=== PATIENT | female | born 1955 | race Caucasian/White ===

== ENCOUNTER 2017-09-25 16:54 | Inpatient (IN) | payer MEDICARE ==
[~2017-09-25] VITALS: Ht 154.9 cm; Wt 166.4 kg
[~2017-09-25 16:54] MED LIST: ACET1TAB25 PO; BACL10TA PO; CYAN250014 PO; FERR325T22 PO; FLUT100P6 MC; LEVO125T11 PO; LEVO150T11 PO; OMEG1CAP6 PO; OMEP40CA37 PO; SULF1TAB42 PO; TRAM50TA4 PO
[2017-09-25 17:19] LABS: BASOPHILS % (AUTO) 0.3 % (0.0-5.0); HEMATOCRIT 44.2 % (36-48); LYMPHOCYTES % (AUTO) 19.6 % (21.0-51.0); MEAN CORPUSCULAR HEMOGLOBIN 30.6 pg (27.0-33.0); MEAN CORPUSCULAR HGB CONC 33.2 g/dL (32.0-36.0); MEAN CORPUSCULAR VOLUME 92.2 fL (79-99); MONOCYTES % (AUTO) 14.6 % (3.0-13.0); NEUTROPHILS % (AUTO) 64.5 % (40.0-77.0); NUCLEATED RED BLOOD CELLS 0.1 % (0.0-0.19); PLATELET COUNT (AUTO) 216 K/uL (130-400); RED BLOOD CELL COUNT(AUTO) 4.79 MIL/uL (4.00-5.50); RED CELL DISTRIBUTION WIDTH 13.9 % (11.0-15.5); WHITE BLOOD COUNT (AUTO) 7.2 K/uL (4.8-10.8)
[2017-09-25 17:29] LABS: PARTIAL THROMBOPLASTIN TIME 30.6 SEC (26.3-35.5); PROTHROMBIN TIME 10.5 SEC (9.6-11.6)
[2017-09-25 17:32] LABS: CARBON DIOXIDE 26 mmol/L (21-32); CHLORIDE 101 mmol/L (101-111); CREATININE 0.7 mg/dL (0.5-1.5); GLOMERULAR FILTR. RATE CALC 90 mL/min (>60); GLUCOSE,RANDOM 117 mg/dL (70-105); POTASSIUM 3.6 mmol/L (3.5-5.1); SODIUM SERUM 136 mmol/L (136-145); UREA NITROGEN, BLOOD 18 mg/dL (7-18)
[2017-09-25 17:44] LABS: ALANINE AMINOTRANSFERASE 31 U/L (12-78); ALBUMIN 3.1 g/dL (3.5-5.0); AMYLASE 16 U/L (25-115); ASPARTATE AMINOTRANSFERASE 35 U/L (10-37); BILIRUBIN,TOTAL 0.8 mg/dL (0.2-1.0); CREATINE KINASE MB < 0.5 ng/mL (0.5-3.6); CREATINE KINASE, TOTAL 61 U/L (21-232); LIPASE 104 U/L (114-286); TOTAL PROTEIN, SERUM 6.8 g/dL (6.0-8.3)
[2017-09-25 18:25] LABS: B-TYPE NATRIURETIC PEPTIDE 23 pg/mL (0-100)
[2017-09-25] MEDS ORDERED: TRAMADOL HCL 50 MG TABLET ONE ×2 (18:25→23:06)
[2017-09-25 18:50] LABS: ERYTHROCYTE SEDIMENTATION RATE 27 MM/HR (0-15)
[2017-09-25 18:50] LABS: APPEARANCE,URINE Cloudy (CLEAR); BILIRUBIN,URINE Negative (NEGATIVE); COLOR,URINE Yellow (YELLOW); GLUCOSE, URINE (UA) Negative (NEGATIVE); KETONES,URINE Negative (NEGATIVE); LEUKOCYTE ESTERASE ,URINE Large (NEGATIVE); NITRATE,URINE Negative (NEGATIVE); OCCULT BLOOD,URINE Trace (NEGATIVE); PH,URINE 5.5 (5.0-8.0); PROTEIN,URINE Negative (NEGATIVE)
[2017-09-25 18:55] LABS: BACTERIA,URINE Many /HPF (None Seen); RBC,URINE None Seen /HPF (0-1); WBC,URINE 26-50 /HPF (0-1)
[2017-09-25] MEDS ORDERED: CLINDAMYCIN 600 MG/D5% WATER 50 ML IV ONE (19:52)
[2017-09-25] MEDS ORDERED: ZOSYN 3.375GM+NS 50ML 50 ML IV ONE (19:52)
[2017-09-25] MEDS ORDERED: VANCOMYCIN 1GM+NS 250ML 250 ML IV ONE (21:36)
[2017-09-26] MEDS ORDERED: VANCOMYCIN PROTOCOL PER PHARMACY IV SCH (01:30)
[2017-09-26] MEDS ORDERED: ACETAMINOPHEN 325 MG TAB PO PRN (01:30)
[2017-09-26] MEDS: SODIUM CHLORIDE 0.9% 1000ML 1,000 ML IV SCH ×2 (01:45→15:05)
[2017-09-26 02:00] VITALS: BP 98/63
[2017-09-26] MEDS ORDERED: CITA10TA7 PO (02:43)
[2017-09-26] MEDS ORDERED: ASPI-988 PO (02:43)
[2017-09-26] MEDS ORDERED: CHOL50004 PO (02:43)
[2017-09-26] MEDS ORDERED: FLUT5POW4 MC (02:43)
[2017-09-26] MEDS ORDERED: LOVA10TA2 PO (02:43)
[2017-09-26] MEDS ORDERED: [UNRECOGNIZED DRUG - CODE] TP (02:43)
[2017-09-26] MEDS ORDERED: FLUT5POW4 NS (02:43)
[2017-09-26] MEDS ORDERED: COMPOUND IV REFRIGERATED 1 EACH IVSOLN MISC PRN (04:00)
[2017-09-26] MEDS: ZOSYN 3.375GM+NS 50ML 50 ML IV SCH ×3 (04:21→22:37)
[2017-09-26 04:33] VITALS: BP 89/58
[2017-09-26 05:32] LABS: CREATININE 0.8 mg/dL (0.5-1.5)
[2017-09-26 05:35] LABS: POTASSIUM 2.9 mmol/L (3.5-5.1)
[2017-09-26 05:36] LABS: HEMATOCRIT 41.3 % (36-48); MEAN CORPUSCULAR HEMOGLOBIN 31.2 pg (27.0-33.0); MEAN CORPUSCULAR HGB CONC 33.1 g/dL (32.0-36.0); MEAN CORPUSCULAR VOLUME 94.1 fL (79-99); PLATELET COUNT (AUTO) 213 K/uL (130-400); RED BLOOD CELL COUNT(AUTO) 4.39 MIL/uL (4.00-5.50); RED CELL DISTRIBUTION WIDTH 14.1 % (11.0-15.5); WHITE BLOOD COUNT (AUTO) 8.4 K/uL (4.8-10.8)
[2017-09-26] MEDS ORDERED: PHARMACY COMMUNICATION MISC SCH ×2 (06:45→07:45)
[2017-09-26] MEDS ORDERED: POTASSIUM CHLORIDE 10 MEQ/TAB.SR PO PRN (07:00)
[2017-09-26] MEDS ORDERED: LIDOCAINE HCL-MPF 1% 2ML VIAL IV PRN (07:00)
[2017-09-26] MEDS ORDERED: POTASSIUM CHLORIDE 10MEQ/100ML 100 ML IV PRN (07:00)
[2017-09-26] MEDS: POTASSIUM CHLORIDE 10% ELIXIR 20 MEQ/15 ML UDCUP PO PRN ×2 (07:59→19:39)
[2017-09-26 08:00] VITALS: BP 111/64
[2017-09-26] MEDS: VANCOMYCIN 1.25 GM in SODIUM CHLORIDE 0.9% 250 ML IV SCH ×3 (08:00→22:48)
[2017-09-26] MEDS ORDERED: TRAMADOL HCL 50 MG TABLET PO PRN (10:15)
[2017-09-26] MEDS: PANTOPRAZOLE SODIUM 40 MG TABLET.DR PO SCH (10:52)
[2017-09-26] MEDS: ENOXAPARIN SODIUM 40 MG/0.4 ML SYRINGE SQ SCH (10:53)
[2017-09-26 12:00] VITALS: BP 117/55
[2017-09-26] MEDS: POTASSIUM CHLORIDE 10 MEQ in SODIUM CHLORIDE 0.9% 1000ML 1,000 ML IV SCH ×2 (12:05→21:09)
[2017-09-26] MEDS: TRAMADOL HCL 50 MG TABLET PO PRN ×2 (12:44→22:47)
[2017-09-26 16:00] VITALS: BP 113/57
[2017-09-26 19:00] VITALS: BP 110/70
[2017-09-27] VITALS (7 sets, daily range): BP systolic 105–127; BP diastolic 58–76
[2017-09-27] MEDS: ZOSYN 3.375GM+NS 50ML 50 ML IV SCH ×3 (03:57→22:08)
[2017-09-27] MEDS: SODIUM CHLORIDE 0.9% 1000ML 1,000 ML IV SCH ×2 (03:58→15:29)
[2017-09-27 05:50] LABS: CREATININE 0.7 mg/dL (0.5-1.5); POTASSIUM 3.8 mmol/L (3.5-5.1)
[2017-09-27 06:05] LABS: HEMATOCRIT 40.2 % (36-48); MEAN CORPUSCULAR HEMOGLOBIN 30.9 pg (27.0-33.0); MEAN CORPUSCULAR HGB CONC 33.1 g/dL (32.0-36.0); MEAN CORPUSCULAR VOLUME 93.3 fL (79-99); PLATELET COUNT (AUTO) 209 K/uL (130-400); RED BLOOD CELL COUNT(AUTO) 4.31 MIL/uL (4.00-5.50); RED CELL DISTRIBUTION WIDTH 13.9 % (11.0-15.5); WHITE BLOOD COUNT (AUTO) 5.4 K/uL (4.8-10.8)
[2017-09-27] MEDS: VANCOMYCIN 1.25 GM in SODIUM CHLORIDE 0.9% 250 ML IV SCH ×2 (06:30→14:58)
[2017-09-27] MEDS: ATORVASTATIN CALCIUM 10 MG TABLET PO SCH (08:17)
[2017-09-27] MEDS: CITALOPRAM 20 MG TABLET PO SCH (08:17)
[2017-09-27] MEDS: CYANOCOBALAMIN (VITAMIN B-12) 1,000 MCG TABLET PO SCH (08:17)
[2017-09-27] MEDS: LEVOTHYROXINE 125 MCG TABLET PO SCH (08:17)
[2017-09-27] MEDS: FISH OIL 1000 MG/CAP PO SCH (08:18)
[2017-09-27] MEDS: ENOXAPARIN SODIUM 40 MG/0.4 ML SYRINGE SQ SCH (08:19)
[2017-09-27] MEDS: PANTOPRAZOLE SODIUM 40 MG TABLET.DR PO SCH (08:19)
[2017-09-27] MEDS: **HM** VIT D3 5000 UNITS PO SCH (08:20)
[2017-09-27 08:44] LABS: EOSINOPHILS % (MANUAL) 4 % (1-6); LYMPHOCYTES % (MANUAL) 17 % (22-44); MONOCYTES % (MANUAL) 11 % (2-9); PLATELET MORPHOLOGY COMMENT ADEQUATE; SEGMENTED NEUTROPHILS % 68 % (40-70)
[2017-09-27 08:45] LABS: MAN.DIFF COMMENT-IMPRESSION MANUAL DIFFERENTIAL
[2017-09-27] MEDS ORDERED: FLUTICASONE PROP MISC PRN (09:00)
[2017-09-27] MEDS ORDERED: [UNRECOGNIZED DRUG - OTHER] TP PRN (09:00)
[2017-09-27] MEDS ORDERED: EXCEDRINE MIGRAINE PO PRN (09:00)
[2017-09-27] MEDS: POTASSIUM CHLORIDE 10 MEQ in SODIUM CHLORIDE 0.9% 1000ML 1,000 ML IV SCH ×2 (13:24→22:44)
[2017-09-27] MEDS ORDERED: SODIUM CHLORIDE 0.9% 250 ML IV ONE (15:04)
[2017-09-27] MEDS: TRAMADOL HCL 50 MG TABLET PO PRN (17:43)
[2017-09-28] MEDS: TRAMADOL HCL 50 MG TABLET PO PRN ×4 (00:12→23:26)
[2017-09-28 03:35] VITALS: BP 110/71
[2017-09-28] MEDS: ZOSYN 3.375GM+NS 50ML 50 ML IV SCH ×3 (04:11→21:09)
[2017-09-28] MEDS: SODIUM CHLORIDE 0.9% 1000ML 1,000 ML IV SCH ×2 (04:11→20:25)
[2017-09-28 08:05] VITALS: BP 121/73
[2017-09-28] MEDS: **HM** VIT D3 5000 UNITS PO SCH (09:00)
[2017-09-28] MEDS ORDERED: LEVOTHYROXINE 150 MCG TABLET PO SCH (09:00)
[2017-09-28] MEDS: LEVOTHYROXINE 125 MCG TABLET PO SCH ×2 (09:00→09:05)
[2017-09-28] MEDS ORDERED: VANCOMYCIN 1.5 GM in SODIUM CHLORIDE 0.9% 250 ML IV SCH (09:00)
[2017-09-28] MEDS: ENOXAPARIN SODIUM 40 MG/0.4 ML SYRINGE SQ SCH (09:03)
[2017-09-28] MEDS: ATORVASTATIN CALCIUM 10 MG TABLET PO SCH (09:04)
[2017-09-28] MEDS: FISH OIL 1000 MG/CAP PO SCH (09:04)
[2017-09-28] MEDS: PANTOPRAZOLE SODIUM 40 MG TABLET.DR PO SCH (09:04)
[2017-09-28] MEDS: CITALOPRAM 20 MG TABLET PO SCH (09:04)
[2017-09-28] MEDS: CYANOCOBALAMIN (VITAMIN B-12) 1,000 MCG TABLET PO SCH (09:04)
[2017-09-28] MEDS: WATER IV SCH ×2 (09:16→21:09)
[2017-09-28] MEDS: DEXTROSE 5% IV SCH ×2 (09:16→21:09)
[2017-09-28] MEDS: VANCOMYCIN IV SCH ×2 (09:16→21:09)
[2017-09-28 11:34] VITALS: BP 128/71
[2017-09-28 16:47] VITALS: BP 129/75
[2017-09-28] MEDS ORDERED: BENZOCAINE/MENTH/CETYLPYRD CL 1 EACH LOZENGE MM PRN (18:00)
[2017-09-28 20:21] VITALS: BP 117/72
[2017-09-28] MEDS: POTASSIUM CHLORIDE 10 MEQ in SODIUM CHLORIDE 0.9% 1000ML 1,000 ML IV SCH (21:08)
[2017-09-29 00:06] VITALS: BP 143/72
[2017-09-29] MEDS: POTASSIUM CHLORIDE 10 MEQ in SODIUM CHLORIDE 0.9% 1000ML 1,000 ML IV SCH (02:33)
[2017-09-29 04:05] VITALS: BP 120/67
[2017-09-29] MEDS: ZOSYN 3.375GM+NS 50ML 50 ML IV SCH ×2 (04:13→12:00)
[2017-09-29] MEDS: TRAMADOL HCL 50 MG TABLET PO PRN (06:41)
[2017-09-29 07:35] VITALS: BP 132/61
[2017-09-29] MEDS ORDERED: ACETAMINOPHEN-CODEINE 300/30MG TAB PO SCH (08:15)
[2017-09-29] MEDS: DEXTROSE 5% IV SCH (08:49)
[2017-09-29] MEDS: VANCOMYCIN IV SCH (08:49)
[2017-09-29] MEDS: WATER IV SCH (08:49)
[2017-09-29] MEDS: ENOXAPARIN SODIUM 40 MG/0.4 ML SYRINGE SQ SCH (08:49)
[2017-09-29] MEDS: FISH OIL 1000 MG/CAP PO SCH (08:49)
[2017-09-29] MEDS: CYANOCOBALAMIN (VITAMIN B-12) 1,000 MCG TABLET PO SCH (08:50)
[2017-09-29] MEDS: ATORVASTATIN CALCIUM 10 MG TABLET PO SCH (08:50)
[2017-09-29] MEDS: LEVOTHYROXINE 125 MCG TABLET PO SCH (08:50)
[2017-09-29] MEDS: PANTOPRAZOLE SODIUM 40 MG TABLET.DR PO SCH (08:50)
[2017-09-29] MEDS: CITALOPRAM 20 MG TABLET PO SCH (08:52)
[2017-09-29] MEDS: **HM** VIT D3 5000 UNITS PO SCH (09:00)
[2017-09-29] MEDS: SODIUM CHLORIDE 0.9% 1000ML 1,000 ML IV SCH (10:19)
[2017-09-29 11:58] VITALS: BP 111/65
[2017-09-29] MEDS ORDERED: FLU VACC QS2017-18 36MOS UP/PF 60 MCG/0.5 ML ML IM SCH (13:45)
[2017-09-29] MEDS ORDERED: FLU VACC QS2017-18 36MOS UP/PF 60 MCG/0.5 ML ML IM ONE (13:52)
== END 2017-09-29 16:29 | disposition home or self-care (01) | DRG 603 ==
LOC: EDH 16:54 → EDHIP 18:59 → 4CH 23:53
PROVIDERS: ADMIT Internal Medicine Nephrology; ATTEND Internal Medicine Nephrology
PROC: 3E0234Z Introduction of Serum, Toxoid and Vaccine into Muscle, Percutaneous Approach (ICD-10-PCS; principal; 2017-09-26)
DX: L03.311 Cellulitis of abdominal wall (principal); E66.01 Morbid (severe) obesity due to excess calories; N39.0 Urinary tract infection, site not specified; E03.9 Hypothyroidism, unspecified; E11.9 Type 2 diabetes mellitus without complications; E87.6 Hypokalemia; K43.9 Ventral hernia without obstruction or gangrene; Z23 Encounter for immunization; E78.5 Hyperlipidemia, unspecified; F41.1 Generalized anxiety disorder; K21.9 Gastro-esophageal reflux disease without esophagitis; Z82.49 Family history of ischemic heart disease and other diseases of the circulatory system; Z83.3 Family history of diabetes mellitus; G89.29 Other chronic pain; M54.5 Low back pain; Z90.49 Acquired absence of other specified parts of digestive tract; Z88.0 Allergy status to penicillin; Z88.2 Allergy status to sulfonamides
CPT/HCPCS: 36415; 71010; 74176; 80048; 80053; 80202; 81001; 82150; 82550; 82553; 82948; 83605; 83690; 83880; 84132; 84484; 85025; 85027; 85610; 85651; 85730; 86141; 87040; 87088; 87186; 93005; G0008; J1650; J2543; J3370; J3480; J3490; J7030; J7060; Q2038

== ENCOUNTER 2017-10-18 07:23 | Inpatient (IN) | payer MEDICARE ==
[~2017-10-18] VITALS: Ht 154.9 cm; Wt 166.0 kg
[~2017-10-18 07:23] MED LIST changes: +ASPI-988 PO; -BACL10TA PO; +CHOL50004 PO; +CITA10TA7 PO; -FERR325T22 PO; -FLUT100P6 MC; +FLUT5POW4 MC; +FLUT5POW4 NS; +LOVA10TA2 PO; -SULF1TAB42 PO; +[UNRECOGNIZED DRUG - CODE] TP
[2017-10-18] MEDS ORDERED: SODIUM CHLORIDE 0.9% 1000ML 1,000 ML IV ONE ×2 (07:55→08:51)
[2017-10-18] MEDS ORDERED: VANCOMYCIN 1GM+NS 250ML 250 ML IV ONE (08:19)
[2017-10-18 08:25] LABS: BASOPHILS % (AUTO) 0.4 % (0.0-5.0); EOSINOPHILS % (AUTO) 1.9 % (0.0-8.0); LYMPHOCYTES % (AUTO) 16.3 % (21.0-51.0); MEAN CORPUSCULAR HEMOGLOBIN 31.3 pg (27.0-33.0); MEAN CORPUSCULAR HGB CONC 33.5 g/dL (32.0-36.0); MEAN CORPUSCULAR VOLUME 93.2 fL (79-99); MONOCYTES % (AUTO) 12.4 % (3.0-13.0); PLATELET COUNT (AUTO) 210 K/uL (130-400); RED BLOOD CELL COUNT(AUTO) 4.71 MIL/uL (4.00-5.50); RED CELL DISTRIBUTION WIDTH 14.2 % (11.0-15.5); WHITE BLOOD COUNT (AUTO) 8.3 K/uL (4.8-10.8)
[2017-10-18 08:40] LABS: POTASSIUM 3.9 mmol/L (3.5-5.1)
[2017-10-18 08:46] LABS: ALBUMIN 3.2 g/dL (3.5-5.0); BILIRUBIN,TOTAL 0.7 mg/dL (0.2-1.0); TOTAL PROTEIN, SERUM 7.1 g/dL (6.0-8.3)
[2017-10-18 09:36] LABS: CREATININE 0.8 mg/dL (0.5-1.5)
[2017-10-18] MEDS ORDERED: MEROPENEM 1 GM VIAL ONE (17:14)
[2017-10-18] MEDS ORDERED: TRAMADOL HCL 50 MG TABLET ONE (18:44)
[2017-10-18 21:15] VITALS: BP 110/62
[2017-10-18] MEDS ORDERED: DEXTROSE 50%-WATER 50 ML DISP.SYRIN IV PRN (21:45)
[2017-10-18] MEDS ORDERED: VANCOMYCIN PROTOCOL PER PHARMACY IV SCH (21:45)
[2017-10-18] MEDS ORDERED: GLUCAGON 1MG KIT 1 MG ML IM PRN (21:45)
[2017-10-18] MEDS ORDERED: SODIUM CHLORIDE 0.9% 1000ML 1,000 ML IV SCH (22:00)
[2017-10-19] VITALS (7 sets, daily range): BP systolic 99–122; BP diastolic 42–78
[2017-10-19] MEDS ORDERED: MEROPENEM 1 GM VIAL IVP SCH (04:30)
[2017-10-19] MEDS ORDERED: COMPOUND IV REFRIGERATED 1 EACH IVSOLN MISC PRN ×2 (04:30→07:15)
[2017-10-19] MEDS ORDERED: DIPHENOXYLATE HCL/ATROPINE 2.5/0.025 MG TAB PO PRN (04:45)
[2017-10-19] MEDS ORDERED: CYCLOBENZAPRINE HCL 10 MG TABLET PO PRN (04:45)
[2017-10-19] MEDS ORDERED: FLUTICASONE PROPIONATE 50MCG/SPRAY 16 GM BOTTLE NS SCH (04:45)
[2017-10-19] MEDS ORDERED: CYCL10TA7 PO (05:05)
[2017-10-19] MEDS ORDERED: LOVA10TA2 PO (05:05)
[2017-10-19] MEDS ORDERED: LEVO200T10 PO (05:05)
[2017-10-19] MEDS ORDERED: CHOL50004 PO (05:05)
[2017-10-19] MEDS ORDERED: CYAN1TAB44 PO (05:05)
[2017-10-19] MEDS ORDERED: DIPH1TAB24 PO (05:05)
[2017-10-19] MEDS ORDERED: OMEP40CA37 PO (05:05)
[2017-10-19] MEDS ORDERED: ASPI-797 PO (05:05)
[2017-10-19] MEDS ORDERED: TRI115C TP (05:05)
[2017-10-19] MEDS ORDERED: LEVO150T11 PO (05:05)
[2017-10-19] MEDS ORDERED: CITA10TA7 PO (05:05)
[2017-10-19] MEDS ORDERED: TRAM50TA4 PO (05:05)
[2017-10-19] MEDS ORDERED: CEPH500C2 PO (05:05)
[2017-10-19] MEDS ORDERED: FLUT16H NASAL (05:05)
[2017-10-19 05:41] LABS: HEMATOCRIT 39.1 % (36-48); MEAN CORPUSCULAR HEMOGLOBIN 31.7 pg (27.0-33.0); MEAN CORPUSCULAR HGB CONC 33.8 g/dL (32.0-36.0); MEAN CORPUSCULAR VOLUME 93.8 fL (79-99); PLATELET COUNT (AUTO) 190 K/uL (130-400); RED BLOOD CELL COUNT(AUTO) 4.17 MIL/uL (4.00-5.50); WHITE BLOOD COUNT (AUTO) 4.7 K/uL (4.8-10.8)
[2017-10-19 05:56] LABS: ALBUMIN 2.5 g/dL (3.5-5.0); BILIRUBIN,TOTAL 0.6 mg/dL (0.2-1.0); CREATININE 0.7 mg/dL (0.5-1.5); POTASSIUM 3.2 mmol/L (3.5-5.1)
[2017-10-19] MEDS ORDERED: VANCOMYCIN 1.5 GM in SODIUM CHLORIDE 0.9% 250 ML IV SCH ×2 (06:30→07:13)
[2017-10-19] MEDS: INSULIN R PO SS1 SQ SCH ×4 (06:38→19:38)
[2017-10-19] MEDS: MEROPENEM 1 GM VIAL IVP SCH ×3 (08:03→22:56)
[2017-10-19] MEDS ORDERED: LEVOTHYROXINE 150 MCG TABLET PO SCH (09:00)
[2017-10-19] MEDS ORDERED: ASPIRIN PO PRN (09:00)
[2017-10-19] MEDS: CHOLECALCIFEROL 5000 UNIT PO SCH (09:00)
[2017-10-19] MEDS ORDERED: NON-FORMULARY MEDICATION 1 EACH (Omeprazole 40 MG) PO SCH (09:00)
[2017-10-19] MEDS ORDERED: CAFFEINE PO PRN (09:00)
[2017-10-19] MEDS ORDERED: TRIAMCINOLONE ACETONIDE 0.1% CREAM 15GM TP SCH (09:00)
[2017-10-19] MEDS ORDERED: PANTOPRAZOLE 40 MG/VIAL IVP SCH (09:00)
[2017-10-19] MEDS ORDERED: ACETAMINOPHEN PO PRN (09:00)
[2017-10-19] MEDS ORDERED: POTASSIUM CHLORIDE 10% ELIXIR 20 MEQ/15 ML UDCUP PO PRN (09:15)
[2017-10-19] MEDS ORDERED: LIDOCAINE HCL-MPF 1% 2ML VIAL IVP PRN (09:15)
[2017-10-19] MEDS ORDERED: MAGNESIUM 2GM PREMIX 50ML 50 ML IV PRN (09:15)
[2017-10-19] MEDS ORDERED: POTASSIUM CHLORIDE 20MEQ/100ML 100 ML IV PRN (09:15)
[2017-10-19] MEDS: CITALOPRAM 20 MG TABLET PO SCH (10:16)
[2017-10-19] MEDS: FOLIC ACID/VITAMIN B COMP W-C 1 MG CAPSULE PO SCH (10:16)
[2017-10-19] MEDS: PANTOPRAZOLE SODIUM 40 MG TABLET.DR PO SCH (10:20)
[2017-10-19] MEDS: ENOXAPARIN SODIUM 40 MG/0.4 ML SYRINGE SQ SCH (10:20)
[2017-10-19] MEDS: TRAMADOL HCL 50 MG TABLET PO PRN (10:31)
[2017-10-19] MEDS: POTASSIUM CHLORIDE 20 MEQ ERTAB PO PRN ×2 (13:53→17:59)
[2017-10-19] MEDS: HYDROMORPHONE HCL 2 MG/ML VIAL IVP PRN (18:00)
[2017-10-19] MEDS: TRIAMCINOLONE ACETONIDE 0.1% CREAM 15GM TP SCH (22:55)
[2017-10-19] MEDS: LOVASTATIN 10 MG PO SCH (22:55)
[2017-10-19] MEDS: VANCOMYCIN 750MG + NS 250 ML IV SCH ×2 (22:56)
[2017-10-19] MEDS: ACETAMINOPHEN 325 MG TAB PO PRN (22:57)
[2017-10-20] MEDS: HYDROMORPHONE HCL 2 MG/ML VIAL IVP PRN ×2 (02:19→17:58)
[2017-10-20 03:00] VITALS: BP 127/61
[2017-10-20 05:11] LABS: CREATININE 0.7 mg/dL (0.5-1.5); MAGNESIUM 1.8 mg/dL (1.80-2.40); POTASSIUM 3.8 mmol/L (3.5-5.1)
[2017-10-20] MEDS: LEVOTHYROXINE 100 MCG TABLET PO SCH (06:46)
[2017-10-20] MEDS: MEROPENEM 1 GM VIAL IVP SCH ×3 (06:46→22:09)
[2017-10-20] MEDS: VANCOMYCIN 750MG + NS 250 ML IV SCH ×6 (06:47→22:10)
[2017-10-20] MEDS: INSULIN R PO SS1 SQ SCH ×4 (06:52→21:00)
[2017-10-20 07:20] VITALS: BP 113/59
[2017-10-20] MEDS ORDERED: LEVOTHYROXINE 100 MCG TABLET PO SCH (09:00)
[2017-10-20] MEDS: CITALOPRAM 20 MG TABLET PO SCH (09:19)
[2017-10-20] MEDS: PANTOPRAZOLE SODIUM 40 MG TABLET.DR PO SCH (09:20)
[2017-10-20] MEDS: FOLIC ACID/VITAMIN B COMP W-C 1 MG CAPSULE PO SCH (09:20)
[2017-10-20] MEDS: ACETAMINOPHEN 325 MG TAB PO PRN ×2 (09:22→14:17)
[2017-10-20] MEDS: ENOXAPARIN SODIUM 40 MG/0.4 ML SYRINGE SQ SCH (09:22)
[2017-10-20] MEDS: TRIAMCINOLONE ACETONIDE 0.1% CREAM 15GM TP SCH ×2 (09:30→22:11)
[2017-10-20] MEDS: CHOLECALCIFEROL 5000 UNIT PO SCH (09:30)
[2017-10-20 10:44] VITALS: BP 119/60
[2017-10-20] MEDS: TRAMADOL HCL 50 MG TABLET PO PRN (15:29)
[2017-10-20 16:33] VITALS: BP 129/73
[2017-10-20 19:30] VITALS: BP 109/61
[2017-10-20] MEDS: LOVASTATIN 10 MG PO SCH (22:13)
[2017-10-20 23:33] VITALS: BP 105/71
[2017-10-21] MEDS: HYDROMORPHONE HCL 2 MG/ML VIAL IVP PRN ×3 (00:59→18:35)
[2017-10-21 03:58] VITALS: BP 122/50
[2017-10-21 04:20] LABS: INR 0.99 (0.85-1.15); PROTHROMBIN TIME 10.4 SEC (9.6-11.6)
[2017-10-21] MEDS: INSULIN R PO SS1 SQ SCH ×4 (05:40→21:00)
[2017-10-21] MEDS ORDERED: LEVOTHYROXINE 150 MCG TABLET PO SCH (06:30)
[2017-10-21] MEDS: MEROPENEM 1 GM VIAL IVP SCH ×3 (06:56→23:09)
[2017-10-21] MEDS: TRAMADOL HCL 50 MG TABLET PO PRN (06:56)
[2017-10-21] MEDS: VANCOMYCIN 750MG + NS 250 ML IV SCH ×6 (06:57→23:09)
[2017-10-21 08:00] VITALS: BP 113/63
[2017-10-21] MEDS: CHOLECALCIFEROL 5000 UNIT PO SCH (09:00)
[2017-10-21] MEDS: FOLIC ACID/VITAMIN B COMP W-C 1 MG CAPSULE PO SCH (09:14)
[2017-10-21] MEDS: TRIAMCINOLONE ACETONIDE 0.1% CREAM 15GM TP SCH ×2 (09:14→23:10)
[2017-10-21] MEDS: CITALOPRAM 20 MG TABLET PO SCH (09:15)
[2017-10-21] MEDS: PANTOPRAZOLE SODIUM 40 MG TABLET.DR PO SCH (09:15)
[2017-10-21] MEDS: ENOXAPARIN SODIUM 40 MG/0.4 ML SYRINGE SQ SCH (09:19)
[2017-10-21 11:00] VITALS: BP 106/51
[2017-10-21] MEDS: POLYETHYLENE GLYCOL 3350 17 GM POWD.PACK PO SCH (11:10)
[2017-10-21 16:00] VITALS: BP 114/56
[2017-10-21 20:00] VITALS: BP 129/77
[2017-10-21] MEDS: LOVASTATIN 10 MG PO SCH (21:00)
[2017-10-21 23:43] VITALS: BP 119/71
[2017-10-22] MEDS: HYDROMORPHONE HCL 2 MG/ML VIAL IVP PRN ×3 (00:07→10:01)
[2017-10-22 03:45] VITALS: BP 109/52
[2017-10-22] MEDS: MEROPENEM 1 GM VIAL IVP SCH ×2 (06:23→14:35)
[2017-10-22] MEDS: VANCOMYCIN 750MG + NS 250 ML IV SCH ×4 (06:24→14:35)
[2017-10-22] MEDS: INSULIN R PO SS1 SQ SCH ×3 (06:24→16:30)
[2017-10-22] MEDS: LEVOTHYROXINE 100 MCG TABLET PO SCH (06:24)
[2017-10-22 08:00] VITALS: BP 104/56
[2017-10-22] MEDS: CHOLECALCIFEROL 5000 UNIT PO SCH (09:00)
[2017-10-22] MEDS: FOLIC ACID/VITAMIN B COMP W-C 1 MG CAPSULE PO SCH (09:55)
[2017-10-22] MEDS: PANTOPRAZOLE SODIUM 40 MG TABLET.DR PO SCH (09:55)
[2017-10-22] MEDS: POLYETHYLENE GLYCOL 3350 17 GM POWD.PACK PO SCH (09:56)
[2017-10-22] MEDS: ENOXAPARIN SODIUM 40 MG/0.4 ML SYRINGE SQ SCH (09:56)
[2017-10-22] MEDS: CITALOPRAM 20 MG TABLET PO SCH (09:56)
[2017-10-22] MEDS: TRIAMCINOLONE ACETONIDE 0.1% CREAM 15GM TP SCH (10:02)
[2017-10-22 11:00] VITALS: BP 105/54
[2017-10-22 16:00] VITALS: BP 109/59
[2017-10-22] MEDS: TRAMADOL HCL 50 MG TABLET PO PRN (18:55)
== END 2017-10-22 20:00 | DRG 603 ==
LOC: EDH 07:23 → EDHIP 10:00 → 3BH 21:04
PROVIDERS: ADMIT Internal Medicine Nephrology; ATTEND Internal Medicine Nephrology
PROC: 02HV33Z Insertion of Infusion Device into Superior Vena Cava, Percutaneous Approach (ICD-10-PCS; principal; 2017-10-22)
DX: L03.311 Cellulitis of abdominal wall (principal); E66.01 Morbid (severe) obesity due to excess calories; Z68.44 Body mass index [BMI] 60.0-69.9, adult; E03.9 Hypothyroidism, unspecified; E11.9 Type 2 diabetes mellitus without complications; E87.6 Hypokalemia; K43.9 Ventral hernia without obstruction or gangrene; E78.5 Hyperlipidemia, unspecified; G89.29 Other chronic pain; F41.1 Generalized anxiety disorder; K21.9 Gastro-esophageal reflux disease without esophagitis; Z82.49 Family history of ischemic heart disease and other diseases of the circulatory system; Z83.3 Family history of diabetes mellitus; Z90.49 Acquired absence of other specified parts of digestive tract; Z28.21 Immunization not carried out because of patient refusal; Z88.0 Allergy status to penicillin; Z88.8 Allergy status to other drugs, medicaments and biological substances; Z80.9 Family history of malignant neoplasm, unspecified
CPT/HCPCS: 36415; 71045; 80048; 80053; 80202; 82948; 83735; 85025; 85027; 85610; 97039; A4218; C9113; J1170; J1650; J2185; J3370; J3475; J7030

== ENCOUNTER 2018-03-07 14:07 | Observation (INO) | payer MEDICARE ==
[~2018-03-07] VITALS: Ht 154.9 cm; Wt 89.3 kg
[~2018-03-07 14:07] MED LIST changes: -ACET1TAB25 PO; +ASPI-797 PO; -ASPI-988 PO; +CEPH500C2 PO; +CYAN1TAB44 PO; -CYAN250014 PO; +CYCL10TA7 PO; +DIPH1TAB24 PO; +FLUT16H NASAL; -FLUT5POW4 MC; -FLUT5POW4 NS; -LEVO125T11 PO; +LEVO200T10 PO; -OMEG1CAP6 PO; +TRI115C TP; -[UNRECOGNIZED DRUG - CODE] TP
[2018-03-07 15:26] LABS: BASOPHILS % (AUTO) 0.4 % (0.0-5.0); EOSINOPHILS % (AUTO) 2.4 % (0.0-8.0); HEMATOCRIT 40.4 % (36-48); LYMPHOCYTES % (AUTO) 20.8 % (21.0-51.0); MEAN CORPUSCULAR HEMOGLOBIN 30.4 pg (27.0-33.0); MEAN CORPUSCULAR HGB CONC 33.1 g/dL (32.0-36.0); MONOCYTES % (AUTO) 13.3 % (3.0-13.0); NEUTROPHILS % (AUTO) 63.1 % (40.0-77.0); PLATELET COUNT (AUTO) 233 K/uL (130-400); RED BLOOD CELL COUNT(AUTO) 4.39 MIL/uL (4.00-5.50); RED CELL DISTRIBUTION WIDTH 14.6 % (11.0-15.5); WHITE BLOOD COUNT (AUTO) 6.3 K/uL (4.8-10.8)
[2018-03-07 15:41] LABS: CREATININE 0.7 mg/dL (0.5-1.5); POTASSIUM 3.5 mmol/L (3.5-5.1)
[2018-03-07 15:53] LABS: BILIRUBIN,TOTAL 0.5 mg/dL (0.2-1.0); TOTAL PROTEIN, SERUM 7.1 g/dL (6.0-8.3)
[2018-03-07] MEDS ORDERED: IOPAMIDOL-370 100 ML VIAL IV ONE (16:24)
[2018-03-07 17:35] LABS: APPEARANCE,URINE CLOUDY (CLEAR); BILIRUBIN,URINE NEGATIVE (NEGATIVE); COLOR,URINE YELLOW (YELLOW); GLUCOSE, URINE (UA) NEGATIVE (NEGATIVE); KETONES,URINE NEGATIVE (NEGATIVE); LEUKOCYTE ESTERASE ,URINE MODERATE (NEGATIVE); NITRATE,URINE POSITIVE (NEGATIVE); OCCULT BLOOD,URINE TRACE-LYSED (NEGATIVE); PROTEIN,URINE NEGATIVE (NEGATIVE); UROBILINOGEN,URINE 0.2 mg/dL (0.2-1.0)
[2018-03-07] MEDS ORDERED: ONDANSETRON HCL 4 MG/2 ML VIAL ONE (17:45)
[2018-03-07 17:46] LABS: BACTERIA,URINE Moderate /HPF (None Seen); RBC,URINE 0-1 /HPF (0-1); SQUAMOUS EPITHELIAL CELL,UR Few /HPF (0-2)
[2018-03-07] MEDS ORDERED: MORPHINE SULFATE 8 MG/ML VIAL ONE (17:46)
[2018-03-07] MEDS ORDERED: VANCOMYCIN 1GM+NS 250ML 250 ML IV ONE (18:08)
[2018-03-07] MEDS ORDERED: DEXTROSE 50%-WATER 50 ML DISP.SYRIN IV PRN (20:15)
[2018-03-07] MEDS ORDERED: GLUCAGON 1MG KIT 1 MG ML IM PRN (20:15)
[2018-03-07] MEDS ORDERED: HYDROMORPHONE 1 MG/1 ML AMP IVP PRN (20:30)
[2018-03-07] MEDS ORDERED: VANCOMYCIN PROTOCOL PER PHARMACY IV SCH (20:30)
[2018-03-07] MEDS ORDERED: ONDANSETRON HCL 4 MG/2 ML VIAL IVP PRN (20:30)
[2018-03-07] MEDS ORDERED: COMPOUND IV REFRIGERATED 1 EACH IVSOLN MISC PRN (20:45)
[2018-03-07 20:55] VITALS: BP 111/69
[2018-03-07] MEDS ORDERED: ZOSYN 3.375GM+NS 50ML 50 ML IV SCH (21:00)
[2018-03-07] MEDS ORDERED: VANCOMYCIN 1GM+NS 250ML 250 ML IV SCH (21:30)
[2018-03-07] MEDS ORDERED: ACET1TAB25 PO (22:06)
[2018-03-07] MEDS ORDERED: FISH1CAP63 PO (22:06)
[2018-03-07] MEDS: ACETAMINOPHEN 325 MG TAB PO SCH (22:53)
[2018-03-08] VITALS: BP 96/42
[2018-03-08] MEDS ORDERED: INSULIN R NPO SSI SQ SCH
[2018-03-08] MEDS: ACETAMINOPHEN 325 MG TAB PO SCH ×4 (02:15→20:15)
[2018-03-08 04:00] VITALS: BP 111/55
[2018-03-08 05:56] LABS: HEMATOCRIT 37.5 % (36-48); MEAN CORPUSCULAR HEMOGLOBIN 30.3 pg (27.0-33.0); MEAN CORPUSCULAR HGB CONC 32.8 g/dL (32.0-36.0); MEAN CORPUSCULAR VOLUME 92.5 fL (79-99); PLATELET COUNT (AUTO) 235 K/uL (130-400); RED BLOOD CELL COUNT(AUTO) 4.05 MIL/uL (4.00-5.50); RED CELL DISTRIBUTION WIDTH 14.5 % (11.0-15.5); WHITE BLOOD COUNT (AUTO) 4.9 K/uL (4.8-10.8)
[2018-03-08] MEDS: INSULIN HUMULIN R 100 UNIT/ML 3ML SQ SCH ×4 (06:01→21:00)
[2018-03-08 06:15] LABS: POTASSIUM 3.4 mmol/L (3.5-5.1)
[2018-03-08] MEDS ORDERED: DIPHENOXYLATE HCL/ATROPINE 2.5/0.025 MG TAB PO PRN (07:45)
[2018-03-08] MEDS ORDERED: CYCLOBENZAPRINE HCL 10 MG TABLET PO PRN (07:45)
[2018-03-08] MEDS ORDERED: ACETAMINOPHEN-CODEINE 300/30MG TAB PO PRN (07:45)
[2018-03-08] MEDS ORDERED: FLUTICASONE PROPIONATE 50MCG/SPRAY 16 GM BOTTLE EN PRN (07:45)
[2018-03-08] MEDS ORDERED: LEVOTHYROXINE 150 MCG TABLET PO SCH (07:45)
[2018-03-08] MEDS ORDERED: LEVOTHYROXINE 100 MCG TABLET PO SCH (07:50)
[2018-03-08 08:00] VITALS: BP 112/58
[2018-03-08] MEDS: CHOLECALCIFEROL 5000 UNIT PO SCH (09:00)
[2018-03-08] MEDS: HOME MEDICATION 1 EACH PO SCH (09:00)
[2018-03-08] MEDS ORDERED: PANTOPRAZOLE 40 MG/VIAL IVP SCH (09:00)
[2018-03-08] MEDS: CITALOPRAM 20 MG TABLET PO SCH (09:46)
[2018-03-08] MEDS: FISH OIL 1000 MG/CAP PO SCH (09:46)
[2018-03-08] MEDS: TRAMADOL HCL 50 MG TABLET PO PRN ×2 (09:47→18:48)
[2018-03-08] MEDS: VITAMIN B COMPLEX 1 CAPSULE PO SCH (09:47)
[2018-03-08] MEDS: TRIAMCINOLONE ACETONIDE 0.1% CREAM 15GM TP SCH ×2 (10:03→21:00)
[2018-03-08] MEDS: PANTOPRAZOLE SODIUM 40 MG TABLET.DR PO SCH (10:03)
[2018-03-08] MEDS: VANCOMYCIN 2 GM in SODIUM CHLORIDE 0.9% 500ML 500 ML IV SCH ×2 (10:19→21:34)
[2018-03-08 11:30] VITALS: BP 122/68
[2018-03-08 16:00] VITALS: BP 111/68
[2018-03-08 20:00] VITALS: BP 126/71
[2018-03-08] MEDS ORDERED: ATORVASTATIN CALCIUM 10 MG TABLET PO SCH (21:00)
[2018-03-09] VITALS: BP 118/68
[2018-03-09] MEDS: ACETAMINOPHEN 325 MG TAB PO SCH ×2 (02:15→08:15)
[2018-03-09 04:00] VITALS: BP 129/61
[2018-03-09] MEDS: PANTOPRAZOLE SODIUM 40 MG TABLET.DR PO SCH (05:51)
[2018-03-09] MEDS: INSULIN HUMULIN R 100 UNIT/ML 3ML SQ SCH ×2 (06:02→11:30)
[2018-03-09 07:00] VITALS: BP 119/56
[2018-03-09] MEDS ORDERED: BISACODYL 10 MG SUPP.RECT RC ONE (08:00)
[2018-03-09] MEDS: HOME MEDICATION 1 EACH PO SCH (09:00)
[2018-03-09] MEDS: CHOLECALCIFEROL 5000 UNIT PO SCH (09:00)
[2018-03-09] MEDS: FISH OIL 1000 MG/CAP PO SCH (09:58)
[2018-03-09] MEDS: CITALOPRAM 20 MG TABLET PO SCH (09:58)
[2018-03-09] MEDS: VITAMIN B COMPLEX 1 CAPSULE PO SCH (09:58)
[2018-03-09] MEDS: TRIAMCINOLONE ACETONIDE 0.1% CREAM 15GM TP SCH (10:00)
[2018-03-09] MEDS: VANCOMYCIN 2 GM in SODIUM CHLORIDE 0.9% 500ML 500 ML IV SCH (10:05)
[2018-03-09 11:00] VITALS: BP 139/73
[2018-03-09 16:00] VITALS: BP 140/68
== END 2018-03-09 18:30 | disposition home or self-care (01) ==
LOC: EDH 14:07 → INTOOBSV 19:00 → EDHIP 19:00 → 3AH 20:25
PROVIDERS: ADMIT Internal Medicine Nephrology; ATTEND Internal Medicine Nephrology
DX: L03.311 Cellulitis of abdominal wall (principal); E11.9 Type 2 diabetes mellitus without complications; E03.9 Hypothyroidism, unspecified; E66.01 Morbid (severe) obesity due to excess calories; K43.9 Ventral hernia without obstruction or gangrene; E78.5 Hyperlipidemia, unspecified; G89.29 Other chronic pain; M54.5 Low back pain; K21.9 Gastro-esophageal reflux disease without esophagitis; F41.1 Generalized anxiety disorder; Z82.49 Family history of ischemic heart disease and other diseases of the circulatory system; Z83.3 Family history of diabetes mellitus; Z88.0 Allergy status to penicillin; Z90.49 Acquired absence of other specified parts of digestive tract
CPT/HCPCS: 36415 ×3; 74177; 80048; 80053; 80202; 81001; 82550; 82948 ×7; 83690; 84132; 84484; 85025; 85027; 85651; 87040 ×2; 93005; 96365; 96366 ×2; 97116; 97161; 99285; G0378 ×47; G8978; G8979; G8980; G8981; G8982; G8983; J2270; J2405; J3370 ×4; J7040 ×2; Q9967; C9113

== ENCOUNTER 2018-03-26 23:57 | Emergency (ER) | payer MEDICARE ==
[~2018-03-26 23:57] MED LIST changes: +ACET1TAB25 PO; -CEPH500C2 PO; +FISH1CAP63 PO
[2018-03-27 00:19] LABS: APPEARANCE,URINE Cloudy (CLEAR); BILIRUBIN,URINE Negative (NEGATIVE); COLOR,URINE Yellow (YELLOW); GLUCOSE, URINE (UA) Negative (NEGATIVE); KETONES,URINE Negative (NEGATIVE); LEUKOCYTE ESTERASE ,URINE Moderate (NEGATIVE); NITRATE,URINE Positive (NEGATIVE); OCCULT BLOOD,URINE Small (NEGATIVE); PROTEIN,URINE Negative (NEGATIVE); UROBILINOGEN,URINE 0.2 mg/dL (0.2-1.0)
[2018-03-27 00:31] LABS: BACTERIA,URINE Moderate /HPF (None Seen); SQUAMOUS EPITHELIAL CELL,UR Few /HPF (0-2)
[2018-03-27 00:44] LABS: BASOPHILS % (AUTO) 0.3 % (0.0-5.0); EOSINOPHILS % (AUTO) 0.3 % (0.0-8.0); HEMATOCRIT 41.1 % (36-48); LYMPHOCYTES % (AUTO) 6.2 % (21.0-51.0); MEAN CORPUSCULAR HEMOGLOBIN 28.4 pg (27.0-33.0); MEAN CORPUSCULAR HGB CONC 31.2 g/dL (32.0-36.0); MEAN CORPUSCULAR VOLUME 90.9 fL (79-99); MONOCYTES % (AUTO) 2.5 % (3.0-13.0); NEUTROPHILS % (AUTO) 90.7 % (40.0-77.0); NUCLEATED RED BLOOD CELLS 0.1 % (0.0-0.19); PLATELET COUNT (AUTO) 188 K/uL (130-400); RED BLOOD CELL COUNT(AUTO) 4.52 MIL/uL (4.00-5.50); WHITE BLOOD COUNT (AUTO) 6.3 K/uL (4.8-10.8)
[2018-03-27 00:54] LABS: CREATININE 0.9 mg/dL (0.5-1.5); POTASSIUM 3.9 mmol/L (3.5-5.1)
[2018-03-27 01:07] LABS: ALBUMIN 3.1 g/dL (3.5-5.0); BILIRUBIN,TOTAL 0.6 mg/dL (0.2-1.0); CREATINE KINASE MB 1.1 ng/mL (0.5-3.6)
[2018-03-27] MEDS ORDERED: LEVOFLOXACIN 500 MG/D5W 100 ML 100 ML ONE (01:25)
[2018-03-27] MEDS ORDERED: SODIUM CHLORIDE 0.9% 1000ML 1,000 ML IV ONE (03:16)
[2018-03-27] MEDS ORDERED: ACETAMINOPHEN 325 MG TAB ONE (03:16)
== END 2018-03-27 05:25 | disposition home or self-care (01) ==
LOC: EDH 23:57
DX: N39.0 Urinary tract infection, site not specified (principal); R68.83 Chills (without fever); E66.9 Obesity, unspecified; M54.2 Cervicalgia; M54.9 Dorsalgia, unspecified; E78.5 Hyperlipidemia, unspecified; M19.90 Unspecified osteoarthritis, unspecified site; E11.9 Type 2 diabetes mellitus without complications; Z87.891 Personal history of nicotine dependence; Z88.0 Allergy status to penicillin; Z88.1 Allergy status to other antibiotic agents; Z88.8 Allergy status to other drugs, medicaments and biological substances
CPT/HCPCS: 36415; 71045; 80053; 81001; 82550; 82553; 83605; 84484; 85025; 87088; 87186; 93005 ×2; 96365; 99285; J1956; J7030

== ENCOUNTER 2019-04-04 02:07 | Inpatient (IN) | payer MEDICARE ==
[~2019-04-04] VITALS: Ht 157.5 cm; Wt 166.3 kg
[2019-04-04] MEDS ORDERED: KETOROLAC TROMETHAMINE 60 MG/2 ML VIAL ONE (02:42)
[2019-04-04] MEDS ORDERED: ONDANSETRON HCL 4 MG/2 ML VIAL ONE (02:43)
[2019-04-04 02:51] LABS: BASOPHILS % (AUTO) 1.8 % (0.0-5.0); EOSINOPHILS % (AUTO) 2.1 % (0.0-8.0); HEMATOCRIT 38.4 % (36-48); LYMPHOCYTES % (AUTO) 27.8 % (21.0-51.0); MEAN CORPUSCULAR HEMOGLOBIN 29.5 pg (27.0-33.0); MEAN CORPUSCULAR HGB CONC 32.7 g/dL (32.0-36.0); MEAN CORPUSCULAR VOLUME 90.2 fL (79-99); MONOCYTES % (AUTO) 11.8 % (3.0-13.0); NEUTROPHILS % (AUTO) 56.5 % (40.0-77.0); NUCLEATED RED BLOOD CELLS 0.1 % (0.0-0.19); PLATELET COUNT (AUTO) 215 K/uL (130-400); RED BLOOD CELL COUNT(AUTO) 4.25 MIL/uL (4.00-5.50); RED CELL DISTRIBUTION WIDTH 16.5 % (11.0-15.5); WHITE BLOOD COUNT (AUTO) 7.1 K/uL (4.8-10.8)
[2019-04-04 02:54] LABS: CREATININE 0.8 mg/dL (0.5-1.5); POTASSIUM 3.5 mmol/L (3.5-5.1)
[2019-04-04 02:59] LABS: ALBUMIN 2.8 g/dL (3.5-5.0); BILIRUBIN,DIRECT 0.1 mg/dL (0.0-0.3); BILIRUBIN,TOTAL 0.5 mg/dL (0.2-1.0); TOTAL PROTEIN, SERUM 5.8 g/dL (6.0-8.3)
[2019-04-04] MEDS ORDERED: SODIUM CHLORIDE 0.9% 500ML 500 ML IV ONE (06:57)
[2019-04-04 07:11] LABS: ABG BASE EXCESS 0.6 mmol/L (-2.0-3.0); ABG HCO3 26.8 mmol/L (21.0-28.0); ABG OXYGEN SATURATION 94.7 % (95.0-99.0); ABG PCO2 49 mmHg (32-45)
[2019-04-04 07:17] LABS: APPEARANCE,URINE Turbid (CLEAR); BILIRUBIN,URINE Negative (NEGATIVE); COLOR,URINE Yellow (YELLOW); GLUCOSE, URINE (UA) Negative (NEGATIVE); KETONES,URINE Negative (NEGATIVE); LEUKOCYTE ESTERASE ,URINE Large (NEGATIVE); NITRATE,URINE Positive (NEGATIVE); OCCULT BLOOD,URINE Large (NEGATIVE); PH,URINE 5.5 (5.0-8.0); PROTEIN,URINE POS 2+ mg/dL (NEGATIVE); UROBILINOGEN,URINE 0.2 mg/dL (0.2-1.0)
[2019-04-04] MEDS: SODIUM CHLORIDE 0.9% 1000ML 1,000 ML IV SCH ×2 (07:42→18:15)
[2019-04-04 07:44] LABS: BACTERIA,URINE Many /HPF (None Seen); SQUAMOUS EPITHELIAL CELL,UR 0-2 /HPF (0-2); WBC,URINE TNTC /HPF (0-1)
[2019-04-04] MEDS ORDERED: HYDRALAZINE HCL 20 MG/ML VIAL IV PRN (07:45)
[2019-04-04] MEDS ORDERED: ONDANSETRON HCL 4 MG/2 ML VIAL IV PRN (07:45)
[2019-04-04] MEDS ORDERED: ACETAMINOPHEN 325 MG TAB PO PRN ×2 (07:45)
[2019-04-04] MEDS ORDERED: SODIUM CHLORIDE 0.9% 1000ML 1,000 ML IV ONE (08:15)
[2019-04-04] MEDS ORDERED: ENOXAPARIN SODIUM 40 MG/0.4 ML SYRINGE SQ ONE (08:15)
[2019-04-04] MEDS ORDERED: ZOSYN 3.375GM+NS 50ML 50 ML IV ONE (08:16)
[2019-04-04] MEDS ORDERED: ACETAMINOPHEN 325 MG TAB ONE (08:16)
[2019-04-04] MEDS ORDERED: FAMOTIDINE/PF 20 MG/2 ML VIAL IV ONE (08:16)
[2019-04-04 08:27] LABS: HEMOGLOBIN A1C 6.5 % (4.0-6.0)
[2019-04-04] MEDS ORDERED: KETOROLAC TROMETHAMINE 15MG/ML ONE (08:32)
[2019-04-04] MEDS: FAMOTIDINE/PF 20 MG/2 ML VIAL IV SCH ×2 (09:00→20:39)
[2019-04-04] MEDS: ENOXAPARIN SODIUM 40 MG/0.4 ML SYRINGE SQ SCH (09:00)
[2019-04-04] MEDS: ZOSYN 3.375GM+NS 50ML 50 ML IV SCH ×2 (13:00→20:40)
[2019-04-04] MEDS ORDERED: HYDROCODONE/ACETAMINOPHEN 5/325 MG TAB ONE (16:15)
[2019-04-04 19:27] VITALS: BP 102/79
--- NOTE | 2019-04-04 19:30 | NUR ---
RX REPORT RECEIVED FROM JULIAN ORDOÑEZ. NURSE'S ROUNDS DONE. PT COMPLAINING OF BACK PAINS. JULIAN NURSE EXPLAINED TO PT THAT PAIN MED WAS ALREADY CALLED FOR FROM PHARMACY. ASSURED PT THAT SHE WILL BE MEDICATED SOON MED COULD BE PULLED OUT. Addendum: 04/05/19 at 0027 by DARNELL MORENO RN RN Amended: Links added.
[2019-04-04 19:43] VITALS: BP 100/54
[2019-04-04] MEDS: HYDROCODONE/ACETAMINOPHEN 5/325 MG TAB PO PRN (20:39)
--- NOTE | 2019-04-04 20:40 | NUR ---
MEDS SHIFT ASSESSMENT DONE, PLEASE REFER TO CPOE. DUE MEDS ADMINISTERED, NORCO PO GIVEN FOR PAINS. KEPT COMFORTABLE. CALL LIGHT WITHIN REACH. RE-ITERATED FALL PRECAUTIONS. WILL RE-ASSESS PT. Addendum: 04/05/19 at 0040 by DARNELL MROENO RN RN Amended: Links added.
[2019-04-04 23:36] VITALS: BP 97/61
[2019-04-05] MEDS: SODIUM CHLORIDE 0.9% 1000ML 1,000 ML IV SCH ×4 (02:49→23:18)
[2019-04-05 04:00] VITALS: BP 108/59
[2019-04-05] MEDS: ZOSYN 3.375GM+NS 50ML 50 ML IV SCH ×3 (05:06→20:34)
--- NOTE | 2019-04-05 05:35 | NUR ---
WOUND PT JUST HAD HER SHOWER. WOUND DRESSING DONE ON SKIN TEAR IN THE ABDOMEN. CLEANSED WITH SALINE, PAT DRY THEN COVERED WITH NON-ADHERENT GAUZE, COVERED WITH GAUZE AND SECURED WITH TAPE. SALINE LOCK IN LAC NOTED TO BE LEAKING, DISCONTINUED WITH CATHETER INTACT. RE-STARTED IVF AND IV ANTIBIOTICS INFUSION. ASSISTED PT BACK TO BED, KEPT COMFORTABLE WITH HOB ELEVATED. CALL LIGHT WITHIN REACH. FOR MORE CARE. Addendum: 04/05/19 at 0752 by DARNELL MORENO RN RN Amended: Links added.
[2019-04-05] MEDS ORDERED: PHARMACY COMMUNICATION MISC SCH (06:30)
[2019-04-05] MEDS: HYDROCODONE/ACETAMINOPHEN 5/325 MG TAB PO PRN ×2 (06:31→16:28)
[2019-04-05 07:00] VITALS: BP 109/59
[2019-04-05] MEDS: FAMOTIDINE/PF 20 MG/2 ML VIAL IV SCH ×2 (08:41→20:35)
[2019-04-05] MEDS: ENOXAPARIN SODIUM 40 MG/0.4 ML SYRINGE SQ SCH (08:41)
[2019-04-05] MEDS ORDERED: TRAMADOL HCL 50 MG TABLET PO SCH (10:30)
[2019-04-05 11:00] VITALS: BP 93/56
[2019-04-05 16:00] VITALS: BP 112/64
[2019-04-05 20:00] VITALS: BP 110/73
[2019-04-05] MEDS: TRIAMCINOLONE ACETONIDE 0.1% CREAM 15GM TP SCH (20:35)
--- NOTE | 2019-04-05 20:35 | NUR ---
MEDS SHIFT ASSESSMENT DONE, PLEASE REFER TO CHART. DUE MEDS ADMINISTERED, TOLERATED WELL. COMPLAINTS OF HEADACHE. PT COVERED ONE OF HER EYE, PT CLAIMS IT HELP RELIEF PAIN. TRAMADOL PO GIVEN FOR PAINS. KEPT COMFORTABLE IN BED. CALL LIGHT WITHIN REACH. WILL RE-ASSESS PT. Addendum: 04/06/19 at 0221 by DARNELL MORENO RN RN Amended: Links added.
[2019-04-05] MEDS: CYCLOBENZAPRINE HCL 10 MG TABLET PO PRN (20:42)
[2019-04-05] MEDS: TRAMADOL HCL 50 MG TABLET PO PRN (20:43)
[2019-04-05] MEDS: BUDESONIDE 0.5 MG/2 ML INH IH SCH (21:17)
--- NOTE | 2019-04-05 22:28 | NUR ---
I went ahead and placed patient on Bipap w/ small full face mask. Patient stated that she's had a terrible headache all day long and the mask was just exacerbating the pain. She requested to be taken off. I placed her on 2LNC at this time. Mayda YOUNG made aware. Addendum: 04/05/19 at 2230 by HANNAH RAINES, RT RT Amended: Links added.
[2019-04-05 23:48] VITALS: BP 108/68
[2019-04-05] MEDS: ALBUTEROL SULFATE 0.083% 2.5 MG/3 ML INH IH SCH (23:55)
[2019-04-05] MEDS: IPRATROPIUM 0.5 MG/2.5 ML INH IH SCH (23:55)
--- NOTE | 2019-04-06 01:15 | NUR ---
HEADACHE PT CALLS FOR PAIN MEDS, CLAIMS OF HEADACHE. TYLENOL PO ADMINISTERED, TOLERATED WELL. KEPT LIGHTS DIMMED. CALL LIGHT WITHIN REACH. WILL RE-ASSESS PT.
[2019-04-06 03:49] VITALS: BP 125/57
[2019-04-06] MEDS: ZOSYN 3.375GM+NS 50ML 50 ML IV SCH (04:35)
[2019-04-06] MEDS: TRAMADOL HCL 50 MG TABLET PO PRN ×2 (06:20→21:36)
[2019-04-06] MEDS ORDERED: LEVOTHYROXINE 100 MCG TABLET PO SCH (06:30)
[2019-04-06 06:52] LABS: HEMATOCRIT 32.3 % (36-48); MEAN CORPUSCULAR VOLUME 90.6 fL (79-99); NUCLEATED RED BLOOD CELLS 0.1 % (0.0-0.19); PLATELET COUNT (AUTO) 168 K/uL (130-400); RED BLOOD CELL COUNT(AUTO) 3.57 MIL/uL (4.00-5.50); RED CELL DISTRIBUTION WIDTH 16.7 % (11.0-15.5); WHITE BLOOD COUNT (AUTO) 3.3 K/uL (4.8-10.8)
[2019-04-06] MEDS: IPRATROPIUM 0.5 MG/2.5 ML INH IH SCH ×3 (07:02→18:29)
[2019-04-06] MEDS: ALBUTEROL SULFATE 0.083% 2.5 MG/3 ML INH IH SCH ×3 (07:02→18:29)
[2019-04-06 07:06] LABS: CREATININE 0.7 mg/dL (0.5-1.5)
[2019-04-06] MEDS: BUDESONIDE 0.5 MG/2 ML INH IH SCH ×2 (07:14→19:03)
--- NOTE | 2019-04-06 07:20 | NUR ---
PAIN PT AWAKENED AND CLAIMS OF HEADACHE. MEDICATED WITH TRAMADOL IV. KEPT RESTED AND COMFORTABLE. CALL LIGHT WITHIN REACH. WILL RE-ASSESS PT.
[2019-04-06 07:55] LABS: ABG BASE EXCESS 2.3 mmol/L (-2.0-3.0); ABG HCO3 29.3 mmol/L (21.0-28.0); ABG OXYGEN SATURATION 95.6 % (95.0-99.0); ABG PCO2 55 mmHg (32-45)
[2019-04-06 08:00] VITALS: BP 109/58
--- NOTE | 2019-04-06 08:42 | NUR ---
ORDER ORDER REVIEWED FOR CPAP. AND CM TO ARRANGE FOR CPAP PRIOR TO SLEEP STUDY. WILL FOLLOW UP
[2019-04-06] MEDS: TRIAMCINOLONE ACETONIDE 0.1% CREAM 15GM TP SCH ×2 (09:00→21:00)
[2019-04-06] MEDS: Lovastatin 10 MG PO SCH (09:00)
[2019-04-06] MEDS ORDERED: POTASSIUM CHLORIDE 10% ELIXIR 20 MEQ/15 ML UDCUP PO PRN (09:15)
[2019-04-06] MEDS ORDERED: POTASSIUM CHLORIDE 20MEQ/100ML 100 ML IV PRN (09:15)
[2019-04-06] MEDS ORDERED: CEPHALEXIN 500 MG CAPSULE PO SCH (09:15)
[2019-04-06] MEDS ORDERED: LIDOCAINE HCL-MPF 1% 2ML VIAL IVP PRN (09:15)
[2019-04-06] MEDS ORDERED: POTASSIUM CHLORIDE 20 MEQ ERTAB PO ONE (09:23)
[2019-04-06] MEDS: CITALOPRAM 20 MG TABLET PO SCH (09:30)
[2019-04-06] MEDS: FAMOTIDINE/PF 20 MG/2 ML VIAL IV SCH ×2 (09:30→21:37)
[2019-04-06] MEDS: ENOXAPARIN SODIUM 40 MG/0.4 ML SYRINGE SQ SCH (09:32)
[2019-04-06] MEDS ORDERED: PHARMACY COMMUNICATION MISC SCH (09:45)
[2019-04-06 11:00] VITALS: BP 91/43
--- NOTE | 2019-04-06 11:30 | NUR ---
RENTING CPAP ORDER REC'D TO SET UP PT WITH CPAP ON DISCHARGE. SPOKE TO PATIENT, ADVISED HER THAT CPAP MACHINE RENTS FOR $125 MO FROM [facility]. CHRISTY WILL COVER AFTER HER SLEEP STUDY. STATES SHE COULD NOT AFFORD. WILL BRING HER THE CONTACT INFO FOR THIS [email or web address] Addendum: 04/08/19 at 0745 by MELANIE COTTON RN CM Amended: Links added.
[2019-04-06] MEDS: POTASSIUM CHLORIDE 20 MEQ ERTAB PO PRN ×2 (12:34→21:38)
[2019-04-06] MEDS: CEPHALEXIN 500 MG CAPSULE PO SCH ×3 (12:34→21:38)
--- NOTE | 2019-04-06 15:19 | NUR ---
[facility] CONSULT PATIENT ASSESSED ORDERED: PATIENT PRESENTS WITH STAGE II PRESSURE ULCER TO PANNUS; [facility] RECOMMENDATIONS SUBMITTED. Addendum: 04/06/19 at 1520 by SHERRY DIETRICH LVN LVN W Amended: Links added.
[2019-04-06 16:00] VITALS: BP 116/65
--- NOTE | 2019-04-06 16:00 | NUR ---
INITIAL MET WITH PATIENT TO DISCUSS INFO RE CPAP, STATES CANNOT AFFORD, AND WILL NOT BUY. WILL FOLLOW UP , RICHI STUART STATES PT NEEDS BEFORE DC PT LIVES W DAUGHTER AN SON IN LAW. DAUGHTER PROVIDES TRANSPORT. HAS HD W/CHAIR AND COMMODE, NO HOSPITAL BED, PROPS UP W PILLOW. HAS PETS, HAS NO OXYGEN OR NEBS, FOR O2 PIROR TO DC Addendum: 04/08/19 at 1833 by MELANIE COTTON RN CM Amended: Links added.
[2019-04-06 19:22] VITALS: BP 132/60
[2019-04-06] MEDS: CYCLOBENZAPRINE HCL 10 MG TABLET PO PRN (21:44)
[2019-04-06] MEDS: HONEY 1 APPL/ML TUBE TP SCH (21:45)
[2019-04-06] MEDS ORDERED: PROCHLORPERAZINE EDISYLATE 5 MG/ML 2 ML VIAL IM ONE (22:45)
[2019-04-06] MEDS ORDERED: DiphenhydrAMINE HCL 50 MG/ML VIAL IV SCH (22:45)
[2019-04-06] MEDS ORDERED: KETOROLAC TROMETHAMINE 30MG/ML IM PRN (22:45)
[2019-04-07] VITALS (7 sets, daily range): BP systolic 100–149; BP diastolic 51–114
[2019-04-07] MEDS: IPRATROPIUM 0.5 MG/2.5 ML INH IH SCH ×5 (00:17→23:33)
[2019-04-07] MEDS: ALBUTEROL SULFATE 0.083% 2.5 MG/3 ML INH IH SCH ×5 (00:17→23:33)
[2019-04-07] MEDS: BUDESONIDE 0.5 MG/2 ML INH IH SCH ×2 (06:17→19:11)
[2019-04-07] MEDS ORDERED: LEVOTHYROXINE 100 MCG TABLET PO SCH (06:30)
[2019-04-07] MEDS: CEPHALEXIN 500 MG CAPSULE PO SCH ×3 (06:44→22:50)
[2019-04-07 06:49] LABS: CREATININE 0.7 mg/dL (0.5-1.5); MAGNESIUM 1.7 mg/dL (1.80-2.40); POTASSIUM 3.6 mmol/L (3.5-5.1)
[2019-04-07] MEDS ORDERED: DiphenhydrAMINE HCL 50 MG/ML VIAL IV SCH (07:00)
[2019-04-07] MEDS ORDERED: PROCHLORPERAZINE EDISYLATE 5 MG/ML 2 ML VIAL IM SCH (07:00)
[2019-04-07 08:20] LABS: BASOPHILS % (AUTO) 0.3 % (0.0-5.0); EOSINOPHILS % (AUTO) 4.3 % (0.0-8.0); HEMATOCRIT 33.1 % (36-48); LYMPHOCYTES % (AUTO) 16.3 % (21.0-51.0); MEAN CORPUSCULAR HEMOGLOBIN 29.5 pg (27.0-33.0); MEAN CORPUSCULAR HGB CONC 32.4 g/dL (32.0-36.0); MEAN CORPUSCULAR VOLUME 91.2 fL (79-99); MONOCYTES % (AUTO) 15.4 % (3.0-13.0); NEUTROPHILS % (AUTO) 63.7 % (40.0-77.0); NUCLEATED RED BLOOD CELLS 0.1 % (0.0-0.19); PLATELET COUNT (AUTO) 157 K/uL (130-400); RED BLOOD CELL COUNT(AUTO) 3.63 MIL/uL (4.00-5.50); RED CELL DISTRIBUTION WIDTH 16.4 % (11.0-15.5)
[2019-04-07] MEDS: TRIAMCINOLONE ACETONIDE 0.1% CREAM 15GM TP SCH ×2 (09:00→21:00)
[2019-04-07] MEDS: Lovastatin 10 MG PO SCH (09:00)
[2019-04-07] MEDS ORDERED: GADODIAMIDE 10 MMOL/20 ML VIAL IV ONE (09:58)
[2019-04-07] MEDS: CITALOPRAM 20 MG TABLET PO SCH (13:03)
[2019-04-07] MEDS: FAMOTIDINE/PF 20 MG/2 ML VIAL IV SCH ×2 (13:03→22:50)
[2019-04-07] MEDS: ENOXAPARIN SODIUM 40 MG/0.4 ML SYRINGE SQ SCH (13:09)
[2019-04-07] MEDS: HONEY 1 APPL/ML TUBE TP SCH (13:10)
--- NOTE | 2019-04-07 15:00 | NUR ---
PATIENT DUE TO OBESITY COULD NOT FIT IN MRI MACHINE, AWARE OKAY TO DO CT OF HEAD WITH CONTR.
[2019-04-07] MEDS ORDERED: IOHEXOL-350 50ML VIAL IV ONE (17:51)
--- NOTE | 2019-04-07 18:00 | NUR ---
IV CATH INFILTRATED IN RADIOLOGY, STARTED NEW IV CATH 20G TO FANNIE. CT DONE.
[2019-04-07] MEDS: CYCLOBENZAPRINE HCL 10 MG TABLET PO PRN (22:50)
[2019-04-07] MEDS: LUBIPROSTONE 24 MCG CAP PO SCH (22:50)
[2019-04-07] MEDS: TRAMADOL HCL 50 MG TABLET PO PRN (23:01)
[2019-04-08 04:18] VITALS: BP 125/63
[2019-04-08 04:52] LABS: BASOPHILS % (AUTO) 0.7 % (0.0-5.0); EOSINOPHILS % (AUTO) 4.4 % (0.0-8.0); HEMATOCRIT 32.6 % (36-48); LYMPHOCYTES % (AUTO) 16.1 % (21.0-51.0); MEAN CORPUSCULAR HEMOGLOBIN 29.2 pg (27.0-33.0); MEAN CORPUSCULAR HGB CONC 32.6 g/dL (32.0-36.0); MEAN CORPUSCULAR VOLUME 89.5 fL (79-99); MONOCYTES % (AUTO) 16.2 % (3.0-13.0); NEUTROPHILS % (AUTO) 62.6 % (40.0-77.0); PLATELET COUNT (AUTO) 215 K/uL (130-400); RED BLOOD CELL COUNT(AUTO) 3.64 MIL/uL (4.00-5.50); RED CELL DISTRIBUTION WIDTH 16.9 % (11.0-15.5); WHITE BLOOD COUNT (AUTO) 4.1 K/uL (4.8-10.8)
[2019-04-08 05:02] LABS: CREATININE 0.5 mg/dL (0.5-1.5); POTASSIUM 3.3 mmol/L (3.5-5.1)
[2019-04-08] MEDS: ALBUTEROL SULFATE 0.083% 2.5 MG/3 ML INH IH SCH ×2 (06:34→11:19)
[2019-04-08] MEDS: BUDESONIDE 0.5 MG/2 ML INH IH SCH (06:34)
[2019-04-08] MEDS: IPRATROPIUM 0.5 MG/2.5 ML INH IH SCH ×2 (06:34→11:19)
[2019-04-08] MEDS: CEPHALEXIN 500 MG CAPSULE PO SCH ×2 (06:54→18:39)
[2019-04-08] MEDS: POTASSIUM CHLORIDE 20 MEQ ERTAB PO PRN ×3 (06:55→18:41)
[2019-04-08 08:00] VITALS: BP 96/53
[2019-04-08] MEDS: TRIAMCINOLONE ACETONIDE 0.1% CREAM 15GM TP SCH (09:00)
[2019-04-08] MEDS: Lovastatin 10 MG PO SCH (09:00)
[2019-04-08] MEDS: LUBIPROSTONE 24 MCG CAP PO SCH ×2 (11:11→18:39)
[2019-04-08] MEDS: TRAMADOL HCL 50 MG TABLET PO PRN (11:12)
[2019-04-08] MEDS: CITALOPRAM 20 MG TABLET PO SCH (11:13)
[2019-04-08] MEDS: FAMOTIDINE/PF 20 MG/2 ML VIAL IV SCH (11:13)
[2019-04-08] MEDS: ENOXAPARIN SODIUM 40 MG/0.4 ML SYRINGE SQ SCH (11:21)
[2019-04-08] MEDS: HONEY 1 APPL/ML TUBE TP SCH (11:22)
[2019-04-08 12:06] VITALS: BP 125/72
[2019-04-08 16:00] VITALS: BP 117/66
--- NOTE | 2019-04-08 17:00 | NUR ---
OXYGEN DELIVERED DISCHARGE TEACHING IN PROGRESS BY HANNAH . NO CPAP RX PT STATED TO DR. ROD DID NOT WNAT, COUDL NOT AFFORD. Addendum: 04/08/19 at 1845 by MELANIE COTTON RN CM Amended: Links added.
[2019-04-08] MEDS ORDERED: CEPH-578 PO (18:40)
[2019-04-08] MEDS ORDERED: HONE15GE TP (18:40)
--- NOTE | 2019-04-08 19:30 | NUR ---
PT D/C HOME USING TEACH BACK TECHNIQUE RE; NEW MEDS, HOME MEDS, S/S TO WATCH FOR AND WHEN TO CALL MD AND 911, HOW TO CHANGE DRESSING TO MID ABS SKIN TEAR, TEACHING GIVEN TO PROVIDER WELL. Follow up with pulmonology Dr. Portillo, follow up in 7 days for sleep studies, for C-pap, call to set up an appointment at phone# [phone]. follow up with your primary Dr. Daily Anguiano in 1 week. Call to set up an appointment or may go as a walk in. If having shortness of breath or chest pain that does not resolve with rest call 911. Make sure to wear oxygen at all times, an avoid places where they smoke cigarrettes or where theres fires or flames, oxygen is very flamable and may cause or serious whitlock. Patient will continue to use medihoney to mid abdominal skin tear. Wound care; Clean with normal saline, then apply medihoney to wound bed then cover with 4x4s and tape. daily. until you see your doctor for further recommendations. IV OUT INTACT, NO BLEEDING, NO SOB, DRESSING CHANGED PATIENT AND PROVIDER TAUGHT, THINK IT IS SIMPLE AND THAT THEY WILL SEE Miguel MORTON IN 1 WEEK. AT THE [facility].
== END 2019-04-08 20:24 | disposition home or self-care (01) | DRG 189 ==
LOC: EDH 02:07 → EDHIP 07:42 → 3CH 16:27
PROVIDERS: ADMIT Internal Medicine; ATTEND Internal Medicine
PROC: 5A09357 Assistance with Respiratory Ventilation, Less than 24 Consecutive Hours, Continuous Positive Airway Pressure (ICD-10-PCS; principal; 2019-04-06)
PROC: 5A09357 Assistance with Respiratory Ventilation, Less than 24 Consecutive Hours, Continuous Positive Airway Pressure (ICD-10-PCS; 2019-04-07)
DX: J96.21 Acute and chronic respiratory failure with hypoxia (principal); N39.0 Urinary tract infection, site not specified; E66.2 Morbid (severe) obesity with alveolar hypoventilation; Z68.44 Body mass index [BMI] 60.0-69.9, adult; J44.0 Chronic obstructive pulmonary disease with (acute) lower respiratory infection; J98.11 Atelectasis; E44.0 Moderate protein-calorie malnutrition; J96.22 Acute and chronic respiratory failure with hypercapnia; E11.9 Type 2 diabetes mellitus without complications; B96.1 Klebsiella pneumoniae [K. pneumoniae] as the cause of diseases classified elsewhere; E78.5 Hyperlipidemia, unspecified; B96.20 Unspecified Escherichia coli [E. coli] as the cause of diseases classified elsewhere; F17.200 Nicotine dependence, unspecified, uncomplicated; K43.9 Ventral hernia without obstruction or gangrene; G43.909 Migraine, unspecified, not intractable, without status migrainosus; Z74.01 Bed confinement status; Z88.0 Allergy status to penicillin; Z88.8 Allergy status to other drugs, medicaments and biological substances; Z79.4 Long term (current) use of insulin; Z90.49 Acquired absence of other specified parts of digestive tract; Z83.3 Family history of diabetes mellitus; Z82.5 Family history of asthma and other chronic lower respiratory diseases; Z82.49 Family history of ischemic heart disease and other diseases of the circulatory system; Z82.3 Family history of stroke; Z82.0 Family history of epilepsy and other diseases of the nervous system; Z80.8 Family history of malignant neoplasm of other organs or systems; Z84.89 Family history of other specified conditions
CPT/HCPCS: 36415; 36600; 70450; 70460; 71045; 71250; 74176; 80048; 80076; 81001; 82435; 82550; 82803; 82947; 82948; 83036; 83605; 83690; 83735; 84132; 84145; 84295; 84484; 85018; 85025; 85027; 87040; 87077; 87088; 87186; 93005; 94640; 94660; 94664; 94760; A9579; G0378; J1200; J1650; J1885; J2405; J2543; J3490; J7030; J7040; Q9967

== ENCOUNTER 2019-10-27 00:27 | Emergency (ER) | payer MEDICARE, OTHER ==
[~2019-10-27 00:27] MED LIST changes: -ACET1TAB25 PO; -ASPI-797 PO; +CEPH-578 PO; -FLUT16H NASAL; +HONE15GE TP; -LEVO150T11 PO; +OMEP40CA13 PO; -OMEP40CA37 PO
[2019-10-27 01:41] LABS: BASOPHILS % (AUTO) 0.4 % (0.0-5.0); EOSINOPHILS % (AUTO) 2.4 % (0.0-8.0); HEMATOCRIT 42.1 % (36-48); LYMPHOCYTES % (AUTO) 18.8 % (21.0-51.0); MEAN CORPUSCULAR HEMOGLOBIN 30.8 pg (27.0-33.0); MEAN CORPUSCULAR HGB CONC 31.4 g/dL (32.0-36.0); MEAN CORPUSCULAR VOLUME 98.4 fL (79-99); MONOCYTES % (AUTO) 15.2 % (3.0-13.0); NEUTROPHILS % (AUTO) 62.6 % (40.0-77.0); PLATELET COUNT (AUTO) 196 K/uL (130-400); RED BLOOD CELL COUNT(AUTO) 4.28 MIL/uL (4.00-5.50); RED CELL DISTRIBUTION WIDTH 15.4 % (11.0-15.5); WHITE BLOOD COUNT (AUTO) 5.4 K/uL (4.8-10.8)
[2019-10-27 01:53] LABS: CREATININE 0.8 mg/dL (0.5-1.5); POTASSIUM 3.6 mmol/L (3.5-5.1)
[2019-10-27 01:55] LABS: INR 1.09 (0.85-1.15); PARTIAL THROMBOPLASTIN TIME 32.2 SEC (26.3-35.5); PROTHROMBIN TIME 11.4 SEC (9.6-11.6)
[2019-10-27 01:57] LABS: ALBUMIN 2.6 g/dL (3.5-5.0); BILIRUBIN,TOTAL 0.7 mg/dL (0.2-1.0); TOTAL PROTEIN, SERUM 7.2 g/dL (6.0-8.3)
[2019-10-27 02:05] LABS: APPEARANCE,URINE Turbid (CLEAR); BILIRUBIN,URINE Small (NEGATIVE); GLUCOSE, URINE (UA) Negative (NEGATIVE); KETONES,URINE Negative (NEGATIVE); LEUKOCYTE ESTERASE ,URINE Large (NEGATIVE); NITRATE,URINE Positive (NEGATIVE); OCCULT BLOOD,URINE Large (NEGATIVE); PROTEIN,URINE POS 2+ mg/dL (NEGATIVE)
[2019-10-27 02:06] LABS: COLOR,URINE DARK YELLOW (YELLOW)
[2019-10-27 02:28] LABS: BACTERIA,URINE Many /HPF (None Seen); WBC,URINE >100 /HPF (0-1)
[2019-10-27] MEDS ORDERED: LEVOFLOXACIN 750 MG/D5W 150 ML 150 ML ONE (02:29)
[2019-10-27] MEDS ORDERED: KETOROLAC TROMETHAMINE 30MG/ML ONE (02:29)
[2019-10-27] MEDS ORDERED: SODIUM CHLORIDE 0.9% 1000ML 2,000 ML IV ONE (02:31)
== END 2019-10-27 05:32 | disposition home or self-care (01) ==
LOC: EDH 00:27
DX: N30.90 Cystitis, unspecified without hematuria (principal); G89.29 Other chronic pain; M54.5 Low back pain; R11.2 Nausea with vomiting, unspecified; E03.9 Hypothyroidism, unspecified; Z88.0 Allergy status to penicillin; Z88.1 Allergy status to other antibiotic agents; Z90.49 Acquired absence of other specified parts of digestive tract; Z98.890 Other specified postprocedural states
CPT/HCPCS: 36415; 80053; 81001; 82550; 85025; 85610; 85730; 87077; 87088; 87186; 87804 ×2; 96361; 96365; 96366; 96375; 99284; J1885; J1956; J7030

== ENCOUNTER 2020-12-14 15:44 | Inpatient (IN) | payer MEDICARE ==
[~2020-12-14] VITALS: Ht 157.5 cm; Wt 121.0 kg
[~2020-12-14 15:44] MED LIST changes: -CITA10TA7 PO; +CITA10TA89 PO; +CYCL-309 PO; -CYCL10TA7 PO; -OMEP40CA13 PO; +OMEP40CA21 PO
[2020-12-14 16:55] LABS: APPEARANCE,URINE CLEAR (CLEAR); BILIRUBIN,URINE MODERATE (NEGATIVE); COLOR,URINE YELLOW (YELLOW); GLUCOSE, URINE (UA) 100 mg/dL (NEGATIVE); KETONES,URINE 15 mg/dL (NEGATIVE); LEUKOCYTE ESTERASE ,URINE LARGE (NEGATIVE); NITRATE,URINE POSITIVE (NEGATIVE); OCCULT BLOOD,URINE LARGE (NEGATIVE); PH,URINE >=9.0 (5.0-8.0); PROTEIN,URINE >=300 mg/dL (NEGATIVE)
[2020-12-14 17:03] LABS: BACTERIA,URINE Many /HPF (None Seen); MUCUS,URINE Moderate LPF (None Seen); RBC,URINE >100 /HPF (0-1); SQUAMOUS EPITHELIAL CELL,UR 0-2 /HPF (0-2); WBC,URINE 51-100 /HPF (0-1)
[2020-12-14 17:04] LABS: TRIPLE PHOSPHATE CRYSTAL,UR Few /LPF (None Seen)
[2020-12-14 17:42] LABS: BASOPHILS % (AUTO) 0.4 % (0.0-5.0); EOSINOPHILS % (AUTO) 2.3 % (0.0-8.0); HEMATOCRIT 47.9 % (36-48); MEAN CORPUSCULAR HGB CONC 30.7 g/dL (32.0-36.0); MEAN CORPUSCULAR VOLUME 101.1 fL (79-99); MONOCYTES % (AUTO) 16.8 % (3.0-13.0); PLATELET COUNT (AUTO) 250 K/uL (130-400); RED BLOOD CELL COUNT(AUTO) 4.74 MIL/uL (4.00-5.50); RED CELL DISTRIBUTION WIDTH 17.1 % (11.0-15.5); WHITE BLOOD COUNT (AUTO) 7.5 K/uL (4.8-10.8)
[2020-12-14 17:56] LABS: INR 1.08 (0.85-1.15); PROTHROMBIN TIME 11.7 SEC (9.6-11.6)
[2020-12-14 17:58] LABS: PARTIAL THROMBOPLASTIN TIME 27.3 SEC (26.3-35.5)
[2020-12-14 17:59] LABS: CARBON DIOXIDE 28 mmol/L (21-32); CHLORIDE 102 mmol/L (101-111); CREATININE 0.9 mg/dL (0.5-1.5); GLOMERULAR FILTR. RATE CALC 67 mL/min (>60); GLUCOSE,RANDOM 102 mg/dL (70-105); POTASSIUM 3.6 mmol/L (3.5-5.1); SODIUM SERUM 139 mmol/L (136-145); UREA NITROGEN, BLOOD 18 mg/dL (7-18)
[2020-12-14 18:10] LABS: ALANINE AMINOTRANSFERASE 16 U/L (12-78); ALBUMIN 3.1 g/dL (3.5-5.0); ASPARTATE AMINOTRANSFERASE 24 U/L (10-37); BILIRUBIN,TOTAL 0.6 mg/dL (0.2-1.0); CREATINE KINASE, TOTAL 57 U/L (21-232); MYOGLOBIN 61 ng/mL (10-92); TOTAL PROTEIN, SERUM 7.3 g/dL (6.0-8.3); TROPONIN I < 0.04 ng/mL (0.00-0.06)
[2020-12-14] MEDS ORDERED: LEVOFLOXACIN 500 MG/D5W 100 ML 100 ML ONE (18:49)
[2020-12-14] MEDS ORDERED: 0.9%NACL 100ML 100 ML IV ONE (18:49)
[2020-12-14] MEDS ORDERED: GLUCAGON 1MG KIT 1 MG ML IM PRN (19:45)
[2020-12-14] MEDS ORDERED: DEXTROSE 50%-WATER 50 ML DISP.SYRIN IV PRN (19:45)
[2020-12-14] MEDS ORDERED: ONDANSETRON 4MG INJ IVP PRN (19:45)
[2020-12-14] MEDS: CEFTRIAXONE 1G VIAL IVP SCH (19:45)
[2020-12-14] MEDS ORDERED: CEFTRIAXONE 1G VIAL ONE (20:21)
[2020-12-14] MEDS ORDERED: ACETAMINOPHEN 325 MG TAB ONE (20:39)
[2020-12-14 21:00] VITALS: BP 107/47
[2020-12-14] MEDS: INSULIN R PO SS1 SQ SCH (21:00)
[2020-12-14] MEDS: ACETAMINOPHEN 325 MG TAB PO PRN (22:15)
[2020-12-14] MEDS ORDERED: LEVO200C2 PO (22:49)
[2020-12-14] MEDS ORDERED: TOLT2TAB20 PO (22:59)
[2020-12-14] MEDS ORDERED: LISI2.5T13 PO (22:59)
[2020-12-14] MEDS ORDERED: DICY20TA3 PO (22:59)
[2020-12-15] VITALS (7 sets, daily range): BP systolic 96–111; BP diastolic 41–56
[2020-12-15 05:41] LABS: HEMATOCRIT 42.7 % (36-48); MEAN CORPUSCULAR HEMOGLOBIN 31.1 pg (27.0-33.0); MEAN CORPUSCULAR HGB CONC 30.9 g/dL (32.0-36.0); MEAN CORPUSCULAR VOLUME 100.5 fL (79-99); RED BLOOD CELL COUNT(AUTO) 4.25 MIL/uL (4.00-5.50)
[2020-12-15 06:03] LABS: HEMOGLOBIN A1C 5.8 % (4.0-6.0)
[2020-12-15 06:06] LABS: ALBUMIN 2.5 g/dL (3.5-5.0); BILIRUBIN,TOTAL 0.5 mg/dL (0.2-1.0); CREATININE 0.9 mg/dL (0.5-1.5); MAGNESIUM 1.7 mg/dL (1.80-2.40); POTASSIUM 3.7 mmol/L (3.5-5.1)
[2020-12-15] MEDS: INSULIN R PO SS1 SQ SCH ×4 (06:26→19:58)
[2020-12-15] MEDS ORDERED: ENOXAPARIN SODIUM 40 MG/0.4 ML SYRINGE SQ SCH (09:00)
[2020-12-15] MEDS: ACETAMINOPHEN 325 MG TAB PO PRN ×2 (15:30→21:26)
[2020-12-15] MEDS: CEFTRIAXONE 1G VIAL IVP SCH (19:59)
[2020-12-15] MEDS: LACTATED RINGERS 1000ML 1,000 ML IV SCH (19:59)
[2020-12-15] MEDS ORDERED: DICYCLOMINE HCL 20 MG TAB PO PRN (21:45)
[2020-12-15] MEDS ORDERED: MORPHINE 2 MG SYG ONE (22:28)
[2020-12-16] MEDS: CYCLOBENZAPRINE HCL 10 MG TABLET PO PRN ×3 (00:05→20:42)
[2020-12-16 03:54] VITALS: BP 101/56
[2020-12-16] MEDS: LACTATED RINGERS 1000ML 1,000 ML IV SCH ×2 (05:37→14:56)
[2020-12-16] MEDS: INSULIN R PO SS1 SQ SCH ×4 (05:55→20:49)
[2020-12-16] MEDS: LEVOTHYROXINE 100 MCG TABLET PO SCH (06:51)
[2020-12-16 07:00] VITALS: BP 127/61
[2020-12-16] MEDS: LISINOPRIL 2.5 MG TABLET PO SCH (08:13)
[2020-12-16] MEDS: VITAMIN B COMPLEX 1 CAPSULE PO SCH (08:13)
[2020-12-16] MEDS: FISH OIL 1000 MG/CAP PO SCH (08:13)
[2020-12-16] MEDS: CITALOPRAM 20 MG TABLET PO SCH (08:13)
[2020-12-16] MEDS: PANTOPRAZOLE 40 MG TAB DR PO SCH (08:13)
[2020-12-16] MEDS: ATORVASTATIN 10 MG TABLET PO SCH (08:14)
[2020-12-16] MEDS: OXYBUTYNIN CHLORIDE 5 MG TABLET PO SCH ×2 (08:14→20:42)
[2020-12-16] MEDS: CHOLECALCIFEROL 5000 UNIT PO SCH (09:00)
[2020-12-16 11:20] VITALS: BP 116/60
[2020-12-16] MEDS: TRIAMCINOLONE ACETONIDE 0.1% CREAM 15GM TP SCH ×2 (12:01→21:30)
[2020-12-16] MEDS: LACTULOSE 20 GM/30 ML UDCUP PO PRN (14:51)
[2020-12-16 16:00] VITALS: BP 118/61
[2020-12-16 20:20] VITALS: BP 121/67
[2020-12-16] MEDS: CEFTRIAXONE 1G VIAL IVP SCH (20:42)
[2020-12-16] MEDS: MORPHINE 2 MG SYG IVP PRN (20:47)
[2020-12-16 23:58] VITALS: BP 100/55
[2020-12-17] MEDS: LACTATED RINGERS 1000ML 1,000 ML IV SCH ×3 (03:04→21:30)
[2020-12-17 04:18] VITALS: BP 107/58
[2020-12-17 04:48] LABS: HEMATOCRIT 42.1 % (36-48); MEAN CORPUSCULAR HGB CONC 31.1 g/dL (32.0-36.0); MEAN CORPUSCULAR VOLUME 99.8 fL (79-99); RED BLOOD CELL COUNT(AUTO) 4.22 MIL/uL (4.00-5.50); RED CELL DISTRIBUTION WIDTH 16.8 % (11.0-15.5); WHITE BLOOD COUNT (AUTO) 3.9 K/uL (4.8-10.8)
[2020-12-17 05:12] LABS: ALBUMIN 2.4 g/dL (3.5-5.0); BILIRUBIN,TOTAL 0.4 mg/dL (0.2-1.0); CREATININE 0.8 mg/dL (0.5-1.5); MAGNESIUM 1.5 mg/dL (1.80-2.40); POTASSIUM 3.8 mmol/L (3.5-5.1); TOTAL PROTEIN, SERUM 5.8 g/dL (6.0-8.3)
[2020-12-17] MEDS: LEVOTHYROXINE 100 MCG TABLET PO SCH (05:24)
[2020-12-17] MEDS: INSULIN R PO SS1 SQ SCH ×4 (05:33→21:00)
[2020-12-17] MEDS: ATORVASTATIN 10 MG TABLET PO SCH (08:27)
[2020-12-17] MEDS: OXYBUTYNIN CHLORIDE 5 MG TABLET PO SCH ×2 (08:28→20:40)
[2020-12-17] MEDS: VITAMIN B COMPLEX 1 CAPSULE PO SCH (08:28)
[2020-12-17] MEDS: PANTOPRAZOLE 40 MG TAB DR PO SCH (08:29)
[2020-12-17] MEDS: LISINOPRIL 2.5 MG TABLET PO SCH (08:29)
[2020-12-17] MEDS: CITALOPRAM 20 MG TABLET PO SCH (08:30)
[2020-12-17] MEDS: FISH OIL 1000 MG/CAP PO SCH (08:32)
[2020-12-17] MEDS: CHOLECALCIFEROL 5000 UNIT PO SCH (08:34)
[2020-12-17] MEDS: TRIAMCINOLONE ACETONIDE 0.1% CREAM 15GM TP SCH ×2 (08:34→21:00)
[2020-12-17 10:25] VITALS: BP 104/62
[2020-12-17 12:59] VITALS: BP 121/73
[2020-12-17] MEDS: TRAMADOL HCL 50 MG TABLET PO PRN (14:10)
[2020-12-17] MEDS ORDERED: FUROSEMIDE 20MG VIAL ONE (15:58)
[2020-12-17 17:21] VITALS: BP 136/70
[2020-12-17] MEDS: CEFTRIAXONE 1G VIAL IVP SCH (20:40)
[2020-12-17 20:52] VITALS: BP 113/61
[2020-12-17] MEDS: MORPHINE 2 MG SYG IVP PRN (22:22)
[2020-12-17 23:30] VITALS: BP 126/58
[2020-12-18 03:47] VITALS: BP 109/59
[2020-12-18] MEDS: INSULIN R PO SS1 SQ SCH ×4 (05:17→20:54)
[2020-12-18] MEDS: LEVOTHYROXINE 100 MCG TABLET PO SCH (05:31)
[2020-12-18] MEDS: LACTATED RINGERS 1000ML 1,000 ML IV SCH ×2 (06:22→18:18)
[2020-12-18] MEDS: TRAMADOL HCL 50 MG TABLET PO PRN (06:37)
[2020-12-18] MEDS: CYCLOBENZAPRINE HCL 10 MG TABLET PO PRN (08:27)
[2020-12-18] MEDS: FISH OIL 1000 MG/CAP PO SCH (08:27)
[2020-12-18] MEDS: CITALOPRAM 20 MG TABLET PO SCH (08:28)
[2020-12-18] MEDS: ATORVASTATIN 10 MG TABLET PO SCH (08:28)
[2020-12-18] MEDS: OXYBUTYNIN CHLORIDE 5 MG TABLET PO SCH ×2 (08:28→20:53)
[2020-12-18] MEDS: PANTOPRAZOLE 40 MG TAB DR PO SCH (08:28)
[2020-12-18] MEDS: VITAMIN B COMPLEX 1 CAPSULE PO SCH (08:28)
[2020-12-18] MEDS: LISINOPRIL 2.5 MG TABLET PO SCH (08:28)
[2020-12-18] MEDS: CHOLECALCIFEROL 5000 UNIT PO SCH (08:29)
[2020-12-18 08:46] VITALS: BP 117/55
[2020-12-18] MEDS: TRIAMCINOLONE ACETONIDE 0.1% CREAM 15GM TP SCH ×2 (09:00→20:55)
[2020-12-18 14:20] VITALS: BP 103/44
[2020-12-18] MEDS: MORPHINE 2 MG SYG IVP PRN (15:49)
[2020-12-18 17:27] VITALS: BP 121/82
[2020-12-18 20:00] VITALS: BP 100/44
[2020-12-18] MEDS ORDERED: 0.9%NACL 1000ML 1,000 ML IV SCH (20:30)
[2020-12-18] MEDS: CEFTRIAXONE 1G VIAL IVP SCH (20:53)
[2020-12-18] MEDS: MIDODRINE HCL 5 MG TABLET PO SCH (20:54)
[2020-12-18] MEDS: ACETAMINOPHEN 325 MG TAB PO PRN (23:39)
[2020-12-19] VITALS (8 sets, daily range): BP systolic 88–157; BP diastolic 44–68
[2020-12-19] MEDS: LACTATED RINGERS 1000ML 1,000 ML IV SCH ×3 (03:30→19:09)
[2020-12-19] MEDS: LEVOTHYROXINE 100 MCG TABLET PO SCH (05:18)
[2020-12-19] MEDS: INSULIN R PO SS1 SQ SCH ×4 (05:48→21:00)
[2020-12-19 05:53] LABS: HEMATOCRIT 38.3 % (36-48); MEAN CORPUSCULAR HEMOGLOBIN 31.1 pg (27.0-33.0); MEAN CORPUSCULAR HGB CONC 31.1 g/dL (32.0-36.0); RED BLOOD CELL COUNT(AUTO) 3.83 MIL/uL (4.00-5.50); RED CELL DISTRIBUTION WIDTH 16.4 % (11.0-15.5); WHITE BLOOD COUNT (AUTO) 3.9 K/uL (4.8-10.8)
[2020-12-19 05:58] LABS: CREATININE 0.6 mg/dL (0.5-1.5); MAGNESIUM 1.4 mg/dL (1.80-2.40); POTASSIUM 3.3 mmol/L (3.5-5.1)
[2020-12-19] MEDS: ATORVASTATIN 10 MG TABLET PO SCH (07:40)
[2020-12-19] MEDS: TRAMADOL HCL 50 MG TABLET PO PRN ×2 (07:40→19:08)
[2020-12-19] MEDS ORDERED: MAGNESIUM 2GM PREMIX 50ML 50 ML IV ONE (07:52)
[2020-12-19] MEDS ORDERED: KCL 20 MEQ ERTAB PO ONE (07:53)
[2020-12-19] MEDS ORDERED: LIDOCAINE HCL-MPF 1% 2ML VIAL IV PRN (08:00)
[2020-12-19] MEDS ORDERED: KCL 20 MEQ ERTAB PO PRN (08:00)
[2020-12-19] MEDS ORDERED: POTASSIUM CHLORIDE 10% ELIXIR 20 MEQ/15 ML UDCUP PO PRN (08:00)
[2020-12-19] MEDS ORDERED: POTASSIUM CHLORIDE 20MEQ/100ML 100 ML IV PRN (08:00)
[2020-12-19] MEDS: MIDODRINE HCL 5 MG TABLET PO SCH ×4 (09:00→23:14)
[2020-12-19] MEDS: LISINOPRIL 2.5 MG TABLET PO SCH (09:00)
[2020-12-19] MEDS: TRIAMCINOLONE ACETONIDE 0.1% CREAM 15GM TP SCH ×2 (09:00→21:00)
[2020-12-19] MEDS: CHOLECALCIFEROL 5000 UNIT PO SCH (09:00)
[2020-12-19] MEDS: FISH OIL 1000 MG/CAP PO SCH (09:42)
[2020-12-19] MEDS: VITAMIN B COMPLEX 1 CAPSULE PO SCH (09:42)
[2020-12-19] MEDS: OXYBUTYNIN CHLORIDE 5 MG TABLET PO SCH ×2 (09:43→23:14)
[2020-12-19] MEDS: PANTOPRAZOLE 40 MG TAB DR PO SCH (09:43)
[2020-12-19] MEDS: CITALOPRAM 20 MG TABLET PO SCH (09:43)
[2020-12-19] MEDS ORDERED: IOHEXOL-350 50ML VIAL IV ONE (17:03)
[2020-12-19] MEDS ORDERED: IPRATROPIUM/ALBUTEROL SULFATE 3 ML SOLUTION IH ONE (17:13)
[2020-12-19] MEDS ORDERED: IPRATROPIUM/ALBUTEROL SULFATE 3 ML SOLUTION IH SCH (17:15)
[2020-12-19] MEDS ORDERED: FENTANYL CITRATE PF 50 MCG/1 ML 2ML VIAL ONE (17:49)
[2020-12-19] MEDS ORDERED: MIDAZOLAM HCL 1 MG/ML 2ML VIAL ONE (17:49)
[2020-12-19] MEDS: CEFTRIAXONE 1G VIAL IVP SCH (23:13)
[2020-12-19] MEDS: GUAIFENESIN 600 MG TABLET.ER PO SCH (23:14)
[2020-12-20] MEDS: MORPHINE 2 MG SYG IVP PRN ×2 (01:42→21:48)
[2020-12-20 04:31] VITALS: BP 103/46
[2020-12-20] MEDS: LEVOTHYROXINE 100 MCG TABLET PO SCH (07:17)
[2020-12-20] MEDS: LACTULOSE 20 GM/30 ML UDCUP PO PRN (07:19)
[2020-12-20] MEDS: INSULIN R PO SS1 SQ SCH ×4 (07:20→21:00)
[2020-12-20 07:36] LABS: MAGNESIUM 1.7 mg/dL (1.80-2.40); POTASSIUM 4.1 mmol/L (3.5-5.1)
[2020-12-20 07:53] VITALS: BP 110/52
[2020-12-20] MEDS: CHOLECALCIFEROL 5000 UNIT PO SCH (09:00)
[2020-12-20] MEDS: LACTATED RINGERS 1000ML 1,000 ML IV SCH ×2 (09:30→19:30)
[2020-12-20] MEDS: OXYBUTYNIN CHLORIDE 5 MG TABLET PO SCH ×2 (10:30→21:46)
[2020-12-20] MEDS: LISINOPRIL 2.5 MG TABLET PO SCH (10:30)
[2020-12-20] MEDS: VITAMIN B COMPLEX 1 CAPSULE PO SCH (10:30)
[2020-12-20] MEDS: GUAIFENESIN 600 MG TABLET.ER PO SCH ×2 (10:31→21:46)
[2020-12-20] MEDS: PANTOPRAZOLE 40 MG TAB DR PO SCH (10:31)
[2020-12-20] MEDS: CITALOPRAM 20 MG TABLET PO SCH (10:31)
[2020-12-20] MEDS: TRIAMCINOLONE ACETONIDE 0.1% CREAM 15GM TP SCH ×2 (10:33→21:47)
[2020-12-20] MEDS: MIDODRINE HCL 5 MG TABLET PO SCH ×3 (10:35→21:46)
[2020-12-20] MEDS: ATORVASTATIN 10 MG TABLET PO SCH (10:35)
[2020-12-20] MEDS: FISH OIL 1000 MG/CAP PO SCH (10:43)
[2020-12-20 11:16] VITALS: BP 94/43
[2020-12-20] MEDS: TRAMADOL HCL 50 MG TABLET PO PRN (13:35)
[2020-12-20] MEDS: MAGNESIUM 2GM PREMIX 50ML 50 ML IV SCH ×2 (13:35→18:21)
[2020-12-20] MEDS ORDERED: MAGNESIUM 4GM PREMIX 100ML 100 ML IV SCH (14:30)
[2020-12-20 16:08] VITALS: BP 112/51
[2020-12-20 19:46] VITALS: BP 111/43
[2020-12-20] MEDS: CEFTRIAXONE 1G VIAL IVP SCH (21:46)
[2020-12-20] MEDS: ALBUTEROL 0.083% 2.5 MG/3 ML INH IH PRN (23:19)
[2020-12-21] VITALS (27 sets, daily range): BP systolic 82–121; BP diastolic 40–62
[2020-12-21 05:31] LABS: MEAN CORPUSCULAR HEMOGLOBIN 30.5 pg (27.0-33.0); MEAN CORPUSCULAR VOLUME 101.8 fL (79-99); RED BLOOD CELL COUNT(AUTO) 3.93 MIL/uL (4.00-5.50); RED CELL DISTRIBUTION WIDTH 16.7 % (11.0-15.5)
[2020-12-21] MEDS: LEVOTHYROXINE 100 MCG TABLET PO SCH (05:54)
[2020-12-21 06:02] LABS: CREATININE 0.6 mg/dL (0.5-1.5); POTASSIUM 3.9 mmol/L (3.5-5.1)
[2020-12-21] MEDS: ALBUTEROL 0.083% 2.5 MG/3 ML INH IH PRN ×2 (06:18→11:01)
[2020-12-21] MEDS: LACTATED RINGERS 1000ML 1,000 ML IV SCH ×2 (06:34→21:44)
[2020-12-21] MEDS: INSULIN R PO SS1 SQ SCH ×4 (07:30→21:55)
[2020-12-21] MEDS: ATORVASTATIN 10 MG TABLET PO SCH (08:00)
[2020-12-21] MEDS: CHOLECALCIFEROL 5000 UNIT PO SCH (09:00)
[2020-12-21] MEDS: TRIAMCINOLONE ACETONIDE 0.1% CREAM 15GM TP SCH ×2 (09:00→21:46)
[2020-12-21] MEDS: GUAIFENESIN 600 MG TABLET.ER PO SCH ×2 (10:26→21:30)
[2020-12-21] MEDS: MIDODRINE HCL 5 MG TABLET PO SCH ×3 (10:26→21:32)
[2020-12-21] MEDS: CITALOPRAM 20 MG TABLET PO SCH (10:26)
[2020-12-21] MEDS: PANTOPRAZOLE 40 MG TAB DR PO SCH (10:26)
[2020-12-21] MEDS: FISH OIL 1000 MG/CAP PO SCH (10:26)
[2020-12-21] MEDS: VITAMIN B COMPLEX 1 CAPSULE PO SCH (10:26)
[2020-12-21] MEDS: OXYBUTYNIN CHLORIDE 5 MG TABLET PO SCH ×2 (10:26→21:30)
[2020-12-21] MEDS: ACETAMINOPHEN 325 MG TAB PO PRN (11:37)
[2020-12-21] MEDS ORDERED: KETAMINE 50MG/ML SYRINGE 50 MG/ML DISP.SYRIN IV ONE (13:44)
[2020-12-21] MEDS ORDERED: PROPOFOL 10 MG/ML 20ML VIAL IV ONE (13:45)
[2020-12-21] MEDS ORDERED: NEOSTIGMINE 5MG/5ML SYR IV ONE (13:45)
[2020-12-21] MEDS ORDERED: MIDAZOLAM HCL 1 MG/ML 2ML VIAL ONE (13:45)
[2020-12-21] MEDS ORDERED: SUCCINYLCHOLINE 200MG/10ML SYR ONE (13:45)
[2020-12-21] MEDS ORDERED: DEXAMETHASONE SOD PHOSPHATE 10MG/ML 1ML VIAL ONE (13:45)
[2020-12-21] MEDS ORDERED: GLYCOPYRROLATE 1 MG/5 ML SYRINGE ONE (13:45)
[2020-12-21] MEDS ORDERED: LIDOCAINE PF 100MG/5ML (2%) SYRINGE 5ML ONE (13:45)
[2020-12-21] MEDS ORDERED: FENTANYL CITRATE PF 50 MCG/1 ML 2ML VIAL ONE (13:46)
[2020-12-21] MEDS ORDERED: ROCURONIUM 10MG/1ML SYR 10 MG/ML ML ONE (13:46)
[2020-12-21] MEDS ORDERED: ONDANSETRON 4MG INJ ONE (13:46)
[2020-12-21] MEDS ORDERED: IOHEXOL-350 50ML VIAL IV ONE (14:13)
[2020-12-21] MEDS: CEFTRIAXONE 1G VIAL IVP PRN ×2 (14:32→14:55)
[2020-12-21] MEDS: CYCLOBENZAPRINE HCL 10 MG TABLET PO PRN (21:30)
[2020-12-21] MEDS: CEFTRIAXONE 1G VIAL IVP SCH (21:31)
[2020-12-22] MEDS ORDERED: PHENAZOPYRIDINE HCL 200 MG TABLET PO SCH (00:15)
[2020-12-22] MEDS: LACTATED RINGERS 1000ML 1,000 ML IV SCH ×3 (00:40→21:01)
[2020-12-22 03:30] VITALS: BP 116/57
[2020-12-22 06:04] LABS: CREATININE 0.6 mg/dL (0.5-1.5); MAGNESIUM 1.8 mg/dL (1.80-2.40); POTASSIUM 4.4 mmol/L (3.5-5.1)
[2020-12-22] MEDS ORDERED: MORPHINE 2 MG SYG ONE (06:07)
[2020-12-22] MEDS: LEVOTHYROXINE 100 MCG TABLET PO SCH (06:26)
[2020-12-22 08:00] VITALS: BP 123/45
[2020-12-22] MEDS: CHOLECALCIFEROL 5000 UNIT PO SCH (09:00)
[2020-12-22] MEDS: OXYBUTYNIN CHLORIDE 5 MG TABLET PO SCH ×2 (09:01→21:03)
[2020-12-22] MEDS: VITAMIN B COMPLEX 1 CAPSULE PO SCH (09:01)
[2020-12-22] MEDS: MIDODRINE HCL 5 MG TABLET PO SCH ×3 (09:01→21:02)
[2020-12-22] MEDS: GUAIFENESIN 600 MG TABLET.ER PO SCH ×2 (09:01→21:03)
[2020-12-22] MEDS: CITALOPRAM 20 MG TABLET PO SCH (09:01)
[2020-12-22] MEDS: FISH OIL 1000 MG/CAP PO SCH (09:01)
[2020-12-22] MEDS: PANTOPRAZOLE 40 MG TAB DR PO SCH (09:01)
[2020-12-22] MEDS: ATORVASTATIN 10 MG TABLET PO SCH ×2 (09:01→15:23)
[2020-12-22 12:00] VITALS: BP 99/45
[2020-12-22] MEDS: INSULIN R PO SS1 SQ SCH ×2 (12:05→21:15)
[2020-12-22] MEDS: TRIAMCINOLONE ACETONIDE 0.1% CREAM 15GM TP SCH ×2 (15:24→21:16)
[2020-12-22 16:00] VITALS: BP 116/52
[2020-12-22 19:28] VITALS: BP 93/45
[2020-12-22] MEDS: LACTULOSE 20 GM/30 ML UDCUP PO PRN (21:02)
[2020-12-22] MEDS: CEFTRIAXONE 1G VIAL IVP SCH (21:03)
[2020-12-22 23:24] VITALS: BP 116/60
[2020-12-23] MEDS: MORPHINE 2 MG SYG IVP PRN ×2 (03:26→15:10)
[2020-12-23 04:00] VITALS: BP 117/64
[2020-12-23] MEDS: LEVOTHYROXINE 100 MCG TABLET PO SCH (05:22)
[2020-12-23] MEDS: LACTATED RINGERS 1000ML 1,000 ML IV SCH ×3 (05:22→19:30)
[2020-12-23] MEDS: INSULIN R PO SS1 SQ SCH ×4 (05:45→21:00)
[2020-12-23 08:00] VITALS: BP 118/62
[2020-12-23] MEDS: CHOLECALCIFEROL 5000 UNIT PO SCH (09:00)
[2020-12-23] MEDS: OXYBUTYNIN CHLORIDE 5 MG TABLET PO SCH ×2 (09:21→21:09)
[2020-12-23] MEDS: VITAMIN B COMPLEX 1 CAPSULE PO SCH (09:21)
[2020-12-23] MEDS: CITALOPRAM 20 MG TABLET PO SCH (09:22)
[2020-12-23] MEDS: MIDODRINE HCL 5 MG TABLET PO SCH ×3 (09:22→21:09)
[2020-12-23] MEDS: PANTOPRAZOLE 40 MG TAB DR PO SCH (09:22)
[2020-12-23] MEDS: GUAIFENESIN 600 MG TABLET.ER PO SCH ×2 (09:22→21:09)
[2020-12-23] MEDS: ATORVASTATIN 10 MG TABLET PO SCH (09:22)
[2020-12-23] MEDS: FISH OIL 1000 MG/CAP PO SCH (09:22)
[2020-12-23] MEDS: TRIAMCINOLONE ACETONIDE 0.1% CREAM 15GM TP SCH ×2 (09:28→21:00)
[2020-12-23 12:00] VITALS: BP 121/49
[2020-12-23 16:00] VITALS: BP 87/47
[2020-12-23] MEDS: CEFTRIAXONE 1G VIAL IVP SCH (19:30)
[2020-12-23] MEDS: ALBUTEROL 0.083% 2.5 MG/3 ML INH IH PRN (19:49)
[2020-12-23 20:00] VITALS: BP 104/46
[2020-12-24] VITALS: BP 113/44
[2020-12-24] MEDS: ALBUTEROL 0.083% 2.5 MG/3 ML INH IH PRN (01:06)
[2020-12-24] MEDS: LACTATED RINGERS 1000ML 1,000 ML IV SCH (03:15)
[2020-12-24 04:00] VITALS: BP 95/44
[2020-12-24 05:18] LABS: HEMATOCRIT 39.6 % (36-48); MEAN CORPUSCULAR HEMOGLOBIN 32.2 pg (27.0-33.0); MEAN CORPUSCULAR HGB CONC 31.1 g/dL (32.0-36.0); MEAN CORPUSCULAR VOLUME 103.7 fL (79-99); RED BLOOD CELL COUNT(AUTO) 3.82 MIL/uL (4.00-5.50); RED CELL DISTRIBUTION WIDTH 16.6 % (11.0-15.5); WHITE BLOOD COUNT (AUTO) 5.5 K/uL (4.8-10.8)
[2020-12-24 05:27] LABS: CREATININE 0.7 mg/dL (0.5-1.5); MAGNESIUM 1.5 mg/dL (1.80-2.40); POTASSIUM 4.2 mmol/L (3.5-5.1)
[2020-12-24] MEDS: INSULIN R PO SS1 SQ SCH ×3 (06:31→15:40)
[2020-12-24] MEDS: LEVOTHYROXINE 100 MCG TABLET PO SCH (06:32)
[2020-12-24] MEDS: MAGNESIUM 2GM PREMIX 50ML 50 ML IV SCH (06:49)
[2020-12-24 08:24] VITALS: BP 101/58
[2020-12-24] MEDS: PANTOPRAZOLE 40 MG TAB DR PO SCH (08:51)
[2020-12-24] MEDS: FISH OIL 1000 MG/CAP PO SCH (08:51)
[2020-12-24] MEDS: VITAMIN B COMPLEX 1 CAPSULE PO SCH (08:51)
[2020-12-24] MEDS: ATORVASTATIN 10 MG TABLET PO SCH (08:51)
[2020-12-24] MEDS: MIDODRINE HCL 5 MG TABLET PO SCH ×2 (08:51→15:28)
[2020-12-24] MEDS: CHOLECALCIFEROL 5000 UNIT PO SCH (08:52)
[2020-12-24] MEDS: CITALOPRAM 20 MG TABLET PO SCH (08:52)
[2020-12-24] MEDS: GUAIFENESIN 600 MG TABLET.ER PO SCH (08:52)
[2020-12-24] MEDS: TRIAMCINOLONE ACETONIDE 0.1% CREAM 15GM TP SCH (08:52)
[2020-12-24] MEDS: OXYBUTYNIN CHLORIDE 5 MG TABLET PO SCH (08:52)
[2020-12-24 10:59] VITALS: BP 130/62
[2020-12-24] MEDS: MORPHINE 2 MG SYG IVP PRN (15:25)
[2020-12-24 15:57] VITALS: BP 107/45
[2021-04-17] MEDS ORDERED: SCOP1PAT11 TD (21:29)
[2021-04-17] MEDS ORDERED: PANT40TA PO (21:29)
[2021-04-17] MEDS ORDERED: METO-296 PO (21:29)
[2021-04-17] MEDS ORDERED: CEPH500B PO (21:29)
== END 2020-12-24 20:20 | disposition home or self-care (01) | DRG 690 ==
LOC: EDH 15:44 → EDHIP 19:22 → 3AH 20:27
PROVIDERS: ADMIT Internal Medicine Infectious Disease; ATTEND Internal Medicine Infectious Disease
PROC: 0T9B80Z Drainage of Bladder with Drainage Device, Via Natural or Artificial Opening Endoscopic (ICD-10-PCS; principal; 2020-12-14)
PROC: BT1F1ZZ Fluoroscopy of Left Kidney, Ureter and Bladder using Low Osmolar Contrast (ICD-10-PCS; 2020-12-14)
DX: N13.6 Pyonephrosis (principal); Z68.42 Body mass index [BMI] 45.0-49.9, adult; J98.11 Atelectasis; E66.01 Morbid (severe) obesity due to excess calories; Z20.822 Contact with and (suspected) exposure to COVID-19; E03.9 Hypothyroidism, unspecified; E78.5 Hyperlipidemia, unspecified; Z90.49 Acquired absence of other specified parts of digestive tract; Z98.891 History of uterine scar from previous surgery; Z88.0 Allergy status to penicillin; Z88.1 Allergy status to other antibiotic agents; Z88.8 Allergy status to other drugs, medicaments and biological substances; Z83.3 Family history of diabetes mellitus; J45.909 Unspecified asthma, uncomplicated; M19.90 Unspecified osteoarthritis, unspecified site; Z79.84 Long term (current) use of oral hypoglycemic drugs; N94.89 Other specified conditions associated with female genital organs and menstrual cycle; Z87.891 Personal history of nicotine dependence; Z87.440 Personal history of urinary (tract) infections; M47.9 Spondylosis, unspecified; K21.9 Gastro-esophageal reflux disease without esophagitis; Z60.2 Problems related to living alone; K44.9 Diaphragmatic hernia without obstruction or gangrene; K43.9 Ventral hernia without obstruction or gangrene; R53.81 Other malaise; Z74.01 Bed confinement status; N18.9 Chronic kidney disease, unspecified; E87.6 Hypokalemia; E83.42 Hypomagnesemia; I70.0 Atherosclerosis of aorta; Z79.899 Other long term (current) drug therapy; E11.22 Type 2 diabetes mellitus with diabetic chronic kidney disease; I12.9 Hypertensive chronic kidney disease with stage 1 through stage 4 chronic kidney disease, or unspecified chronic kidney disease; B96.4 Proteus (mirabilis) (morganii) as the cause of diseases classified elsewhere
CPT/HCPCS: 36415; 71045; 74176; 74420; 76770; 78700; 80048; 80053; 81001; 82550; 82948; 83036; 83605; 83735; 83874; 84132; 84145; 84484; 85025; 85027; 85610; 85730; 86140; 86900; 86901; 87040; 87077; 87088; 87186; 87426; 87804; 93005; 93306; 93356; 94640; 94664; 94760; A4344; A4606; A9562; C1758; C1769; G0378; J0330; J0696; J1100; J1815; J1940; J1956; J2001; J2250; J2405; J2704; J2710; J3010; J3475; J3480; J3490; J7030; J7120; Q9967; U0003

== ENCOUNTER 2021-06-24 18:21 | Emergency (ER) | payer MEDICARE ==
[~2021-06-24] VITALS: Ht 154.9 cm; Wt 143.3 kg
[~2021-06-24 18:21] MED LIST changes: -CEPH-578 PO; +CEPH500B PO; +CITA10TA7 PO; -CITA10TA89 PO; -CYCL-309 PO; +CYCL10TA7 PO; +DICY20TA11 PO; -DIPH1TAB24 PO; -HONE15GE TP; +LEVO200C2 PO; -LEVO200T10 PO; +LISI2.5T13 PO; +METO-296 PO; +PANT40TA PO; +SCOP1PAT11 TD; +TOLT2TAB20 PO
[2021-06-24 18:23] VITALS: BP 95/55
[2021-06-24] MEDS: MORPHINE 4 MG SYG IM STA ×2 (19:40→22:36)
[2021-06-24] MEDS: ONDANSETRON ODT 4MG TAB SL STA (20:00)
[2021-06-24 21:19] LABS: APPEARANCE,URINE Turbid (CLEAR); BILIRUBIN,URINE Negative (NEGATIVE); COLOR,URINE Yellow (YELLOW); GLUCOSE, URINE (UA) Negative (NEGATIVE); KETONES,URINE Negative (NEGATIVE); LEUKOCYTE ESTERASE ,URINE Large (NEGATIVE); NITRATE,URINE Negative (NEGATIVE); OCCULT BLOOD,URINE Negative (NEGATIVE); PH,URINE 7.5 (5.0-8.0); PROTEIN,URINE Trace mg/dL (NEGATIVE)
[2021-06-24 21:25] LABS: BACTERIA,URINE Moderate /HPF (None Seen); MUCUS,URINE Few LPF (None Seen); SQUAMOUS EPITHELIAL CELL,UR Many /HPF (0-2)
[2021-06-24] MEDS ORDERED: LEVO750T46 PO (21:39)
[2021-06-24] MEDS ORDERED: PHEN-847 PO (21:39)
[2021-06-24] MEDS: LEVOFLOXACIN 500 MG TABLET ONE (22:57)
[2021-06-24] MEDS: LEVOFLOXACIN 500 MG TABLET PO STA (22:58)
== END 2021-06-24 23:54 | disposition home or self-care (01) ==
LOC: EDH 18:21
DX: N39.0 Urinary tract infection, site not specified (principal); K43.9 Ventral hernia without obstruction or gangrene; E78.00 Pure hypercholesterolemia, unspecified; E11.9 Type 2 diabetes mellitus without complications; I10 Essential (primary) hypertension; E66.01 Morbid (severe) obesity due to excess calories; Z88.0 Allergy status to penicillin; Z88.1 Allergy status to other antibiotic agents; Z90.49 Acquired absence of other specified parts of digestive tract; Z79.899 Other long term (current) drug therapy; Z68.43 Body mass index [BMI] 50.0-59.9, adult
CPT/HCPCS: 81001; 87077; 87088; 87186; 96372 ×2; 99284; J2270 ×2

== ENCOUNTER 2021-07-13 10:49 | Inpatient (IN) | payer MEDICARE ==
[~2021-07-13] VITALS: Ht 154.9 cm; Wt 159.5 kg
[~2021-07-13 10:49] MED LIST changes: -CITA10TA7 PO; +CITA10TA89 PO; +CYCL-309 PO; -CYCL10TA7 PO; -DICY20TA11 PO; +DICY20TA3 PO; +LEVO750T46 PO; +PHEN-847 PO
[2021-07-13] MEDS ORDERED: FAMOTIDINE 20MG VIAL IV ONE (11:00)
[2021-07-13] MEDS ORDERED: MORPHINE 4 MG SYG IVP ONE (11:00)
[2021-07-13] MEDS ORDERED: ONDANSETRON 4MG INJ IVP ONE (11:00)
[2021-07-13 12:11] LABS: BASOPHILS % (AUTO) 0.3 % (0.0-5.0); EOSINOPHILS % (AUTO) 3.9 % (0.0-8.0); HEMATOCRIT 40.1 % (36-48); LYMPHOCYTES % (AUTO) 15.7 % (21.0-51.0); MEAN CORPUSCULAR HEMOGLOBIN 33.1 pg (27.0-33.0); MEAN CORPUSCULAR HGB CONC 31.7 g/dL (32.0-36.0); MEAN CORPUSCULAR VOLUME 104.4 fL (79-99); MONOCYTES % (AUTO) 15.8 % (3.0-13.0); NEUTROPHILS % (AUTO) 63.8 % (40.0-77.0); PLATELET COUNT (AUTO) 183 K/uL (130-400); RED BLOOD CELL COUNT(AUTO) 3.84 MIL/uL (4.00-5.50); RED CELL DISTRIBUTION WIDTH 15.5 % (11.0-15.5); WHITE BLOOD COUNT (AUTO) 6.6 K/uL (4.8-10.8)
[2021-07-13 12:43] LABS: CREATININE 0.6 mg/dL (0.5-1.5); POTASSIUM 3.9 mmol/L (3.5-5.1)
[2021-07-13 12:47] LABS: ALBUMIN 2.6 g/dL (3.5-5.0); BILIRUBIN,TOTAL 0.6 mg/dL (0.2-1.0); TOTAL PROTEIN, SERUM 6.1 g/dL (6.0-8.3)
[2021-07-13 12:49] LABS: INR 1.02 (0.85-1.15); PROTHROMBIN TIME 11.1 SEC (9.6-11.6)
[2021-07-13] MEDS ORDERED: 0.9%NACL 1000ML 1,000 ML IV ONE (13:30)
[2021-07-13] MEDS: MEROPENEM 1 GM VIAL IVP SCH ×2 (14:30→19:42)
[2021-07-13] MEDS ORDERED: MEROPENEM 1 GM VIAL ONE (15:01)
[2021-07-13] MEDS: INSULIN R PO SS1 SQ SCH ×2 (15:24→19:53)
[2021-07-13] MEDS: ENOXAPARIN SODIUM 30 MG/0.3 ML SQ SCH (15:25)
[2021-07-13] MEDS ORDERED: CEFTRIAXONE 1G VIAL ONE (16:26)
[2021-07-13] MEDS ORDERED: OMEP40CA21 PO (16:51)
[2021-07-13] MEDS ORDERED: LACT1CAP62 PO (16:51)
[2021-07-13] MEDS ORDERED: VITAMIN B12 PO (16:51)
[2021-07-13] MEDS ORDERED: FERR-82 PO (16:51)
[2021-07-13] MEDS ORDERED: FOLI1 PO (16:51)
[2021-07-13] MEDS ORDERED: LOVA10TA2 PO (16:51)
[2021-07-13] MEDS: LOVASTATIN 10 MG PO SCH (18:08)
[2021-07-13 18:41] VITALS: BP 94/39
[2021-07-13 20:00] VITALS: BP 92/41
[2021-07-13 23:49] VITALS: BP 99/50
[2021-07-14] MEDS: TRAMADOL HCL 50 MG TABLET PO PRN ×2 (01:22→18:02)
[2021-07-14 04:00] VITALS: BP 97/53
[2021-07-14 05:15] LABS: BASOPHILS % (AUTO) 0.7 % (0.0-5.0); EOSINOPHILS % (AUTO) 7.4 % (0.0-8.0); HEMATOCRIT 36.5 % (36-48); LYMPHOCYTES % (AUTO) 20.8 % (21.0-51.0); MEAN CORPUSCULAR HEMOGLOBIN 32.4 pg (27.0-33.0); MEAN CORPUSCULAR HGB CONC 31.2 g/dL (32.0-36.0); MEAN CORPUSCULAR VOLUME 103.7 fL (79-99); MONOCYTES % (AUTO) 15.3 % (3.0-13.0); NEUTROPHILS % (AUTO) 55.6 % (40.0-77.0); PLATELET COUNT (AUTO) 172 K/uL (130-400); RED BLOOD CELL COUNT(AUTO) 3.52 MIL/uL (4.00-5.50); RED CELL DISTRIBUTION WIDTH 15.2 % (11.0-15.5); WHITE BLOOD COUNT (AUTO) 4.3 K/uL (4.8-10.8)
[2021-07-14 05:24] LABS: HEMOGLOBIN A1C 5.6 % (4.0-6.0)
[2021-07-14 05:26] LABS: CREATININE 0.6 mg/dL (0.5-1.5); MAGNESIUM 1.8 mg/dL (1.80-2.40); POTASSIUM 4.6 mmol/L (3.5-5.1)
[2021-07-14] MEDS: INSULIN R PO SS1 SQ SCH ×4 (05:32→21:00)
[2021-07-14] MEDS: MEROPENEM 1 GM VIAL IVP SCH ×3 (05:58→22:49)
[2021-07-14] MEDS: LEVOTHYROXINE 100 MCG TABLET PO SCH (06:36)
[2021-07-14 08:00] VITALS: BP 93/41
[2021-07-14] MEDS: LISINOPRIL 2.5 MG TABLET PO SCH (09:00)
[2021-07-14] MEDS: TOLTERODINE TARTRATE 2 MG PO SCH (09:00)
[2021-07-14] MEDS: LACTOBACILLUS RHAMNOSUS GG 1 EACH CAP.SPRINK PO SCH (10:01)
[2021-07-14] MEDS: CYANOCOBALAMIN (VITAMIN B-12) 1,000 MCG TABLET PO SCH (10:01)
[2021-07-14] MEDS: PANTOPRAZOLE 40 MG TAB DR PO SCH (10:01)
[2021-07-14] MEDS: CITALOPRAM 20 MG TABLET PO SCH (10:03)
[2021-07-14] MEDS: FERROUS SULFATE 325 MG TABLET.DR PO SCH (10:03)
[2021-07-14] MEDS: FOLIC ACID 1 MG TABLET PO SCH (10:06)
[2021-07-14 11:52] VITALS: BP 93/47
[2021-07-14] MEDS: ACETAMINOPHEN 325 MG TAB PO PRN ×2 (14:47→22:50)
[2021-07-14 16:00] VITALS: BP 95/50
[2021-07-14] MEDS: ENOXAPARIN SODIUM 30 MG/0.3 ML SQ SCH (16:48)
[2021-07-14] MEDS: LOVASTATIN 10 MG PO SCH (16:49)
[2021-07-14 18:15] LABS: APPEARANCE,URINE Cloudy (CLEAR); BILIRUBIN,URINE Negative (NEGATIVE); COLOR,URINE Yellow (YELLOW); GLUCOSE, URINE (UA) Negative (NEGATIVE); KETONES,URINE Negative (NEGATIVE); LEUKOCYTE ESTERASE ,URINE Large (NEGATIVE); NITRATE,URINE Negative (NEGATIVE); OCCULT BLOOD,URINE Large (NEGATIVE); PROTEIN,URINE POS 1+ mg/dL (NEGATIVE)
[2021-07-14 18:30] LABS: BACTERIA,URINE Moderate /HPF (None Seen); MUCUS,URINE Few LPF (None Seen); SQUAMOUS EPITHELIAL CELL,UR Moderate /HPF (0-2)
[2021-07-14 20:00] VITALS: BP 97/46
[2021-07-15] VITALS: BP 120/68
[2021-07-15 04:00] VITALS: BP 106/47
[2021-07-15] MEDS: MEROPENEM 1 GM VIAL IVP SCH ×2 (05:59→14:24)
[2021-07-15] MEDS: LEVOTHYROXINE 100 MCG TABLET PO SCH (06:00)
[2021-07-15] MEDS: INSULIN R PO SS1 SQ SCH ×4 (06:01→20:38)
[2021-07-15 08:15] VITALS: BP 98/56
[2021-07-15] MEDS: TOLTERODINE TARTRATE 2 MG PO SCH (09:00)
[2021-07-15] MEDS: LISINOPRIL 2.5 MG TABLET PO SCH (09:00)
[2021-07-15] MEDS: LACTOBACILLUS RHAMNOSUS GG 1 EACH CAP.SPRINK PO SCH (10:09)
[2021-07-15] MEDS: CITALOPRAM 20 MG TABLET PO SCH (10:09)
[2021-07-15] MEDS: FOLIC ACID 1 MG TABLET PO SCH (10:10)
[2021-07-15] MEDS: PANTOPRAZOLE 40 MG TAB DR PO SCH (10:10)
[2021-07-15] MEDS: CYANOCOBALAMIN (VITAMIN B-12) 1,000 MCG TABLET PO SCH (10:11)
[2021-07-15] MEDS: FERROUS SULFATE 325 MG TABLET.DR PO SCH (10:11)
[2021-07-15 11:29] VITALS: BP 94/49
[2021-07-15] MEDS: ENOXAPARIN SODIUM 30 MG/0.3 ML SQ SCH (14:25)
[2021-07-15] MEDS: TRAMADOL HCL 50 MG TABLET PO PRN (16:42)
[2021-07-15] MEDS: LOVASTATIN 10 MG PO SCH (17:00)
[2021-07-15 17:39] VITALS: BP 95/54
[2021-07-15 20:00] VITALS: BP 111/55
[2021-07-16] VITALS (7 sets, daily range): BP systolic 93–137; BP diastolic 38–61
[2021-07-16] MEDS: MEROPENEM 1 GM VIAL IVP SCH ×4 (00:01→23:18)
[2021-07-16] MEDS: TRAMADOL HCL 50 MG TABLET PO PRN (03:29)
[2021-07-16 04:23] LABS: HEMATOCRIT 35.6 % (36-48); MEAN CORPUSCULAR HEMOGLOBIN 33.1 pg (27.0-33.0); MEAN CORPUSCULAR VOLUME 103.5 fL (79-99); RED BLOOD CELL COUNT(AUTO) 3.44 MIL/uL (4.00-5.50); RED CELL DISTRIBUTION WIDTH 15.2 % (11.0-15.5); WHITE BLOOD COUNT (AUTO) 3.1 K/uL (4.8-10.8)
[2021-07-16 04:37] LABS: CREATININE 0.6 mg/dL (0.5-1.5); POTASSIUM 3.9 mmol/L (3.5-5.1)
[2021-07-16] MEDS: INSULIN R PO SS1 SQ SCH ×4 (06:05→21:00)
[2021-07-16] MEDS: LEVOTHYROXINE 100 MCG TABLET PO SCH (06:16)
[2021-07-16] MEDS: LACTOBACILLUS RHAMNOSUS GG 1 EACH CAP.SPRINK PO SCH (08:58)
[2021-07-16] MEDS: CYANOCOBALAMIN (VITAMIN B-12) 1,000 MCG TABLET PO SCH (08:58)
[2021-07-16] MEDS: PANTOPRAZOLE 40 MG TAB DR PO SCH (08:59)
[2021-07-16] MEDS: FOLIC ACID 1 MG TABLET PO SCH (08:59)
[2021-07-16] MEDS: CITALOPRAM 20 MG TABLET PO SCH (08:59)
[2021-07-16] MEDS: TOLTERODINE TARTRATE 2 MG PO SCH (09:00)
[2021-07-16] MEDS: FERROUS SULFATE 325 MG TABLET.DR PO SCH (09:00)
[2021-07-16] MEDS: LISINOPRIL 2.5 MG TABLET PO SCH (09:00)
[2021-07-16] MEDS: ENOXAPARIN SODIUM 30 MG/0.3 ML SQ SCH (16:17)
[2021-07-16] MEDS: LOVASTATIN 10 MG PO SCH (16:18)
[2021-07-17] VITALS (7 sets, daily range): BP systolic 95–110; BP diastolic 49–58
[2021-07-17] MEDS: INSULIN R PO SS1 SQ SCH ×4 (05:37→20:07)
[2021-07-17] MEDS: MEROPENEM 1 GM VIAL IVP SCH (05:43)
[2021-07-17] MEDS: LEVOTHYROXINE 100 MCG TABLET PO SCH (05:44)
[2021-07-17] MEDS: LACTOBACILLUS RHAMNOSUS GG 1 EACH CAP.SPRINK PO SCH (08:20)
[2021-07-17] MEDS: PANTOPRAZOLE 40 MG TAB DR PO SCH (08:21)
[2021-07-17] MEDS: FOLIC ACID 1 MG TABLET PO SCH (08:22)
[2021-07-17] MEDS: CYANOCOBALAMIN (VITAMIN B-12) 1,000 MCG TABLET PO SCH (08:22)
[2021-07-17] MEDS: CITALOPRAM 20 MG TABLET PO SCH (08:22)
[2021-07-17] MEDS: FERROUS SULFATE 325 MG TABLET.DR PO SCH (08:23)
[2021-07-17] MEDS: TOLTERODINE TARTRATE 2 MG PO SCH (08:24)
[2021-07-17] MEDS: LISINOPRIL 2.5 MG TABLET PO SCH (08:39)
[2021-07-17] MEDS ORDERED: AMOXICILLIN 500 MG CAPSULE PO SCH (12:00)
[2021-07-17 12:25] LABS: HEMATOCRIT 37.9 % (36-48); MEAN CORPUSCULAR HEMOGLOBIN 33.1 pg (27.0-33.0); MEAN CORPUSCULAR HGB CONC 31.7 g/dL (32.0-36.0); MEAN CORPUSCULAR VOLUME 104.7 fL (79-99); RED BLOOD CELL COUNT(AUTO) 3.62 MIL/uL (4.00-5.50); RED CELL DISTRIBUTION WIDTH 15.5 % (11.0-15.5); WHITE BLOOD COUNT (AUTO) 3.3 K/uL (4.8-10.8)
[2021-07-17] MEDS ORDERED: PHARMACY COMMUNICATION MISC SCH (12:30)
[2021-07-17 12:46] LABS: CREATININE 0.5 mg/dL (0.5-1.5); POTASSIUM 3.9 mmol/L (3.5-5.1)
[2021-07-17] MEDS ORDERED: BISACODYL 5 MG TABLET.DR PO PRN (13:30)
[2021-07-17] MEDS: ZYVOX 600 MG TAB PO SCH (14:00)
[2021-07-17] MEDS: ENOXAPARIN SODIUM 30 MG/0.3 ML SQ SCH (16:33)
[2021-07-17] MEDS: LOVASTATIN 10 MG PO SCH (17:00)
[2021-07-17] MEDS ORDERED: MAGNESIUM CITRATE 296 ML SOLUTION PO ONE (18:00)
[2021-07-17] MEDS: ONDANSETRON 4MG INJ IVP PRN (20:17)
[2021-07-18] MEDS: ZYVOX 600 MG TAB PO SCH ×2 (02:02→13:23)
[2021-07-18 03:49] VITALS: BP 105/58
[2021-07-18] MEDS: LEVOTHYROXINE 100 MCG TABLET PO SCH (05:44)
[2021-07-18] MEDS: INSULIN R PO SS1 SQ SCH ×2 (05:45→11:19)
[2021-07-18 07:20] VITALS: BP 103/50
[2021-07-18] MEDS: CYANOCOBALAMIN (VITAMIN B-12) 1,000 MCG TABLET PO SCH (08:22)
[2021-07-18] MEDS: CITALOPRAM 20 MG TABLET PO SCH (08:22)
[2021-07-18] MEDS: LACTOBACILLUS RHAMNOSUS GG 1 EACH CAP.SPRINK PO SCH (08:22)
[2021-07-18] MEDS: FOLIC ACID 1 MG TABLET PO SCH (08:22)
[2021-07-18] MEDS: PANTOPRAZOLE 40 MG TAB DR PO SCH (08:22)
[2021-07-18] MEDS: LISINOPRIL 2.5 MG TABLET PO SCH (08:31)
[2021-07-18] MEDS: TOLTERODINE TARTRATE 2 MG PO SCH (08:31)
[2021-07-18] MEDS: FERROUS SULFATE 325 MG TABLET.DR PO SCH (08:31)
[2021-07-18 10:04] LABS: MEAN CORPUSCULAR HEMOGLOBIN 32.5 pg (27.0-33.0); MEAN CORPUSCULAR VOLUME 104.8 fL (79-99); PLATELET COUNT (AUTO) 173 K/uL (130-400); RED BLOOD CELL COUNT(AUTO) 3.72 MIL/uL (4.00-5.50); RED CELL DISTRIBUTION WIDTH 15.5 % (11.0-15.5); WHITE BLOOD COUNT (AUTO) 3.5 K/uL (4.8-10.8)
[2021-07-18 10:14] LABS: CREATININE 0.7 mg/dL (0.5-1.5); POTASSIUM 3.5 mmol/L (3.5-5.1)
[2021-07-18 11:15] VITALS: BP 96/54
[2021-07-18] MEDS: ONDANSETRON 4MG INJ IVP PRN (13:23)
[2021-07-18] MEDS ORDERED: ONDANSETRON 4MG INJ IVP PRN (13:30)
[2021-07-19] MEDS ORDERED: LIDOCAINE 5% TOPICAL PATCH TP SCH (09:00)
== END 2021-07-18 16:40 | DRG 690 ==
LOC: EDH 10:49 → EDHIP 14:30 → OBSVTOIN 14:30 → 3DH 18:20
PROVIDERS: ADMIT Internal Medicine Infectious Disease; ATTEND Internal Medicine Infectious Disease
DX: N39.0 Urinary tract infection, site not specified (principal); Z68.44 Body mass index [BMI] 60.0-69.9, adult; E78.5 Hyperlipidemia, unspecified; E66.01 Morbid (severe) obesity due to excess calories; I10 Essential (primary) hypertension; K21.9 Gastro-esophageal reflux disease without esophagitis; E78.00 Pure hypercholesterolemia, unspecified; B95.2 Enterococcus as the cause of diseases classified elsewhere; Z88.0 Allergy status to penicillin; Z88.8 Allergy status to other drugs, medicaments and biological substances; Z90.49 Acquired absence of other specified parts of digestive tract
CPT/HCPCS: 36415; 80048; 80053; 81001; 82150; 82948; 83036; 83605; 83690; 83735; 84484; 85025; 85027; 85610; 87077; 87088; 87186; 97039; G0378; J0696; J1650; J2185; J2270; J2405; J3490; J7030

== ENCOUNTER 2021-09-13 05:32 | Emergency (ER) | payer MEDICARE ==
[~2021-09-13] VITALS: Ht 154.9 cm; Wt 161.5 kg
[~2021-09-13 05:32] MED LIST changes: -CEPH500B PO; -CHOL50004 PO; -CYAN1TAB44 PO; -CYCL-309 PO; -DICY20TA3 PO; +FERR-82 PO; -FISH1CAP63 PO; +FOLI1 PO; +LACT1CAP62 PO; -LEVO750T46 PO; -METO-296 PO; -PANT40TA PO; -PHEN-847 PO; -SCOP1PAT11 TD; -TRI115C TP; +VITAMIN B12 PO
[2021-09-13] MEDS ORDERED: BISACODYL 5 MG TABLET.DR PO SCH (07:30)
[2021-09-13] MEDS ORDERED: BISACODYL 10 MG SUPP.RECT RC SCH (07:30)
[2021-09-13 08:09] LABS: BASOPHILS % (AUTO) 0.2 % (0.0-5.0); EOSINOPHILS % (AUTO) 1.8 % (0.0-8.0); HEMATOCRIT 35.2 % (36-48); MEAN CORPUSCULAR HEMOGLOBIN 31.7 pg (27.0-33.0); MEAN CORPUSCULAR VOLUME 102.3 fL (79-99); MONOCYTES % (AUTO) 12.8 % (3.0-13.0); NEUTROPHILS % (AUTO) 71.4 % (40.0-77.0); PLATELET COUNT (AUTO) 231 K/uL (130-400); RED BLOOD CELL COUNT(AUTO) 3.44 MIL/uL (4.00-5.50); RED CELL DISTRIBUTION WIDTH 16.2 % (11.0-15.5); WHITE BLOOD COUNT (AUTO) 8.3 K/uL (4.8-10.8)
[2021-09-13] MEDS: LORAZEPAM 2 MG/ML 1 ML VIAL IVP SCH (08:11)
[2021-09-13 08:16] LABS: CREATININE 0.7 mg/dL (0.5-1.5); POTASSIUM 3.8 mmol/L (3.5-5.1)
[2021-09-13] MEDS ORDERED: DICYCLOMINE 20MG (10MG/ML) AMP IM SCH (10:30)
[2021-09-13 11:53] LABS: APPEARANCE,URINE CLEAR (CLEAR); BILIRUBIN,URINE NEGATIVE (NEGATIVE); COLOR,URINE YELLOW (YELLOW); GLUCOSE, URINE (UA) NEGATIVE (NEGATIVE); KETONES,URINE NEGATIVE (NEGATIVE); LEUKOCYTE ESTERASE ,URINE LARGE (NEGATIVE); NITRATE,URINE NEGATIVE (NEGATIVE); OCCULT BLOOD,URINE MODERATE (NEGATIVE); PROTEIN,URINE 100 mg/dL (NEGATIVE); UROBILINOGEN,URINE 0.2 mg/dL (0.2-1.0)
[2021-09-13 12:13] LABS: BACTERIA,URINE Many /HPF (None Seen); TRIPLE PHOSPHATE CRYSTAL,UR Moderate /LPF (None Seen); WBC,URINE TNTC /HPF (0-1)
[2021-09-13] MEDS ORDERED: KETOROLAC 15MG/ML VIAL (15MG/ML) IV ONE (13:00)
[2021-09-13] MEDS ORDERED: CEPH500B PO (13:03)
[2021-09-13] MEDS ORDERED: CEFTRIAXONE 1G VIAL IVP ONE (14:00)
[2021-09-13 17:33] VITALS: BP 112/68
== END 2021-09-13 17:14 | disposition home or self-care (01) ==
LOC: EDH 05:32
DX: N39.0 Urinary tract infection, site not specified (principal); K43.9 Ventral hernia without obstruction or gangrene; K59.00 Constipation, unspecified; E11.9 Type 2 diabetes mellitus without complications; I10 Essential (primary) hypertension; K62.89 Other specified diseases of anus and rectum; M19.90 Unspecified osteoarthritis, unspecified site; Z88.0 Allergy status to penicillin; Z88.1 Allergy status to other antibiotic agents; Z90.49 Acquired absence of other specified parts of digestive tract; Z79.1 Long term (current) use of non-steroidal anti-inflammatories (NSAID); Z79.899 Other long term (current) drug therapy
CPT/HCPCS: 36415; 74176; 80048; 81001; 85025; 87077; 87088; 87186; 96374; 96375; 99285; J0500; J0696; J1885; J2060

== ENCOUNTER → 2023-12-29 | Outpatient (CLI) | payer MEDICARE ==
[~2023-12-29] MED LIST changes: +ASCO500T96 PO; +BUSP10TA3 PO; +CEFU500T67 PO; +CHOL100046 PO; -CITA10TA89 PO; +DOCU-133 PO; -FERR-82 PO; +FURO40TA5 PO; +LACT10SO5 PO; -LACT1CAP62 PO; +LEVO200T10 PO; +MIDO5TAB4 PO; +ONDA22I PO; +ROSU10TA28 PO; -TOLT2TAB20 PO; +TRAZ-253 PO; -VITAMIN B12 PO
== END | disposition home or self-care (01) ==
LOC: RAH 12:38
PROVIDERS: ATTEND Internal Medicine Cardiovascular Disease
DX: R07.1 Chest pain on breathing (principal)
CPT/HCPCS: 93306

== ENCOUNTER → 2024-01-01 | Outpatient (CLI) | payer MEDICARE ==
[~2024-01-01] MED LIST changes: -CEFU500T67 PO
[2024-01-01] MEDS: REGADENOSON 0.4 MG/5 ML PF SYG IVP SCH (11:00)
== END | disposition home or self-care (01) ==
LOC: RAH 09:34
PROVIDERS: ATTEND Internal Medicine Cardiovascular Disease
DX: I25.10 Atherosclerotic heart disease of native coronary artery without angina pectoris (principal); R01.1 Cardiac murmur, unspecified; M47.815 Spondylosis without myelopathy or radiculopathy, thoracolumbar region; Z98.890 Other specified postprocedural states
CPT/HCPCS: 78452; 96374; 93017; J2785; A9500 ×2

== ENCOUNTER 2024-01-28 11:17 | Emergency (ER) | payer MEDICARE ==
[~2024-01-28] VITALS: Ht 160 cm; Wt 204.1 kg
[2024-01-28 11:17] VITALS: BP 96/51
[2024-01-28 11:48] LABS: BASOPHILS # (AUTO) 0.02 K/uL (0.00-0.20); BASOPHILS % (AUTO) 0.4 % (0.0-5.0); EOSINOPHILS # (AUTO) 0.16 K/uL (0.00-0.70); EOSINOPHILS % (AUTO) 3.3 % (0.0-8.0); IMMATURE GRANULOCYTE ABSOLUTE 0.04 K/uL (0-1); LYMPHOCYTES % (AUTO) 20.7 % (21.0-51.0); MEAN CORPUSCULAR HGB CONC 31.3 g/dL (32.0-36.0); MEAN CORPUSCULAR VOLUME 102.3 fL (79-99); MONOCYTES # (AUTO) 0.6 K/uL (0.1-1.0); MONOCYTES % (AUTO) 11.4 % (3.0-13.0); NEUTROPHILS # (AUTO) 3.1 K/uL (1.8-7.7); NEUTROPHILS % (AUTO) 63.4 % (40.0-77.0); PLATELET COUNT (AUTO) 148 K/uL (130-400); RED BLOOD CELL COUNT(AUTO) 3.91 MIL/uL (4.00-5.50); RED CELL DISTRIBUTION WIDTH 17.9 % (11.0-15.5); WHITE BLOOD COUNT (AUTO) 4.8 K/uL (4.8-10.8)
[2024-01-28 12:14] LABS: CREATININE 0.6 mg/dL (0.5-1.0); POTASSIUM 3.4 mmol/L (3.5-5.1)
[2024-01-28 12:18] LABS: ALBUMIN 2.5 g/dL (3.5-5.0); BILIRUBIN,TOTAL 0.7 mg/dL (0.2-1.0); TOTAL PROTEIN, SERUM 6.3 g/dL (6.0-8.3)
[2024-01-28 12:25] VITALS: PULSE 78; RESP 18; O2SAT 91
[2024-01-28] MEDS: 0.9%NACL 1000ML 1,000 ML IV ONE (12:29)
[2024-01-28] MEDS: KETOROLAC 15MG/ML VIAL (15MG/ML) IV ONE (12:29)
[2024-01-28] MEDS ORDERED: CEFU500T67 PO (14:06)
== END 2024-01-28 16:07 | disposition short-term general hospital (02) ==
LOC: EDH 11:17
DX: N23 Unspecified renal colic (principal); N13.30 Unspecified hydronephrosis; N39.0 Urinary tract infection, site not specified; E66.01 Morbid (severe) obesity due to excess calories; E11.9 Type 2 diabetes mellitus without complications; E78.00 Pure hypercholesterolemia, unspecified; F03.90 Unspecified dementia, unspecified severity, without behavioral disturbance, psychotic disturbance, mood disturbance, and anxiety; I10 Essential (primary) hypertension; Z79.890 Hormone replacement therapy; Z79.899 Other long term (current) drug therapy; Z88.0 Allergy status to penicillin
CPT/HCPCS: 99285; 74176; 96374; 96361; 80053; 83690; 85025; 36415; J7030; J1885

== ENCOUNTER → 2024-05-16 | Outpatient (CLI) | payer MEDICARE ==
[~2024-05-16] MED LIST changes: +CEFU500T67 PO; -ROSU10TA28 PO; +ROSU10TA72 PO
[2024-05-16 16:17] LABS: BASOPHILS # (AUTO) 0.02 K/uL (0.00-0.20); BASOPHILS % (AUTO) 0.4 % (0.0-5.0); EOSINOPHILS # (AUTO) 0.17 K/uL (0.00-0.70); EOSINOPHILS % (AUTO) 3.6 % (0.0-8.0); HEMATOCRIT 37.4 % (36-48); IMMATURE GRANULOCYTE ABSOLUTE 0.05 K/uL (0-1); LYMPHOCYTES # (AUTO) 1.2 K/uL (1.0-4.8); LYMPHOCYTES % (AUTO) 24.8 % (21.0-51.0); MEAN CORPUSCULAR HEMOGLOBIN 27.9 pg (27.0-33.0); MEAN CORPUSCULAR HGB CONC 28.6 g/dL (32.0-36.0); MEAN CORPUSCULAR VOLUME 97.4 fL (79-99); MONOCYTES # (AUTO) 0.8 K/uL (0.1-1.0); MONOCYTES % (AUTO) 15.9 % (3.0-13.0); NEUTROPHILS # (AUTO) 2.6 K/uL (1.8-7.7); NEUTROPHILS % (AUTO) 54.2 % (40.0-77.0); PLATELET COUNT (AUTO) 185 K/uL (130-400); RED BLOOD CELL COUNT(AUTO) 3.84 MIL/uL (4.00-5.50); RED CELL DISTRIBUTION WIDTH 17.3 % (11.0-15.5); WHITE BLOOD COUNT (AUTO) 4.7 K/uL (4.8-10.8)
[2024-05-16 16:27] LABS: CREATININE 0.5 mg/dL (0.5-1.0); MAGNESIUM 1.5 mg/dL (1.80-2.40); POTASSIUM 3.6 mmol/L (3.5-5.1)
== END | disposition home or self-care (01) ==
LOC: LAB 15:07
PROVIDERS: ATTEND Physician Assistant
DX: I35.0 Nonrheumatic aortic (valve) stenosis (principal)
CPT/HCPCS: 36415; 80048; 83735; 85025